=== PATIENT | female | born 1970 | race Caucasian/White ===

== ENCOUNTER 2019-09-28 22:25 | Emergency (ER) | payer OTHER ==
[~2019-09-28] VITALS: Ht 162.6 cm; Wt 68.0 kg
--- OUTSIDE RECORDS SUMMARY | 2019-09-28 22:30 | XMS ---
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 Evie VISIT COUNT (12 MO.) 1 [facility] TOTAL 1 NOTE: Visits indicate total known visits. ED/UCC VISIT TRACKING (12 MO.) 09/28/2019 22:28 [facility] [place] TYPE: Emergency COMPLAINT: - WALKING BACKWORDS AND TWISTED LEFT LEG INPATIENT VISIT TRACKING (12 MO.) No inpatient visits to display in this time frame [id number]
[2019-09-28] MEDS ORDERED: SPIRONOLACTONE25 MG (22:48)
[2019-09-28] MEDS ORDERED: HYDROCHLOROTHIA25 MG (22:50)
[2019-09-28] MEDS ORDERED: NORCO 5-325 TA1 EACH PO (23:24)
[2019-09-28] MEDS ORDERED: CRUTCH1 EACH MISC (23:25)
== END 2019-09-29 00:03 | disposition home or self-care (01) ==
LOC: ED 22:25
DX: S83.92XA Sprain of unspecified site of left knee, initial encounter (principal); X58.XXXA Exposure to other specified factors, initial encounter
CPT/HCPCS: 73560; 99283-25

== ENCOUNTER 2020-02-16 15:17 | Inpatient (IN) | payer OTHER ==
[~2020-02-16] VITALS: Ht 162.6 cm; Wt 88.5 kg
--- OUTSIDE RECORDS SUMMARY | ~2020-02-16 | XMS | Encounter Summary ---
Demographics + + + | Address | [address] | | | [place] [address] | + + + | Home Phone | | + + + | Preferred Language | Unknown | + + + | Marital Status | Single | + + + | Episcopalian Affiliation | Unknown | + + + | Race | White | + + + | Ethnic Group | Not or | + + + Author + + + | Organization | Unknown | + + + | Address | Unknown | + + + | Phone | Unavailable | + + + Support + + + + + | Name | Relationship | Address | Phone | + + + + + | Deyanira Colon | ECON | January | | | | | [place] | | | | | [address] | | + + + + + Care Team Providers + +------+ + | Care Steam Conditioner Operator Name | Role | Phone | + +------+ + PCP | Unavailable | + +------+ + Encounter Details +--------+ + + + + | Date | Type | Department | Care Team | Description | +--------+ + + + + | 06/30/ | Results | | Other, Faculty | | | 1993 | Only | | [phone] | | +--------+ + + + + [...] on file | | + + + + + + + | Job Start Date | Occupation | Industry | + + + + | Not on file | Not on file | Not on file | + + + + + + + + | Travel History | Travel Start | Travel End | + + + + + + | No recent travel history available. | + + documented as of this encounter Plan of Treatment Not on filedocumented as of this encounter Procedures + +--------+ + + + | Procedure Name | Priori | Date/Time | Associated Diagnosis | Comments | | | ty | | | | + +--------+ + + + | US LIVER | Urgent | 06/30/1994 | | Results for this | | | | 1:15 PM | | procedure are in the | | | | PST | | results section. | + +--------+ + + + documented in this encounter Results US LIVER (06/30/1994 1:15 PM PST) + + + + + + | Component | Value | Ref Range | Performed | Pathologist | | | | | At | Signature | + + + + + + | US LIVER | Radiologist 1: CANDACE, | | | | | | SHRAVAN GRIFFINLS, | | | | | | SHALOM TAO | | | | | | | | | | | | | | | | | | [birth year] LIVER | | | | | | ULTRASOUND | | | | | | INTERPRETATION: | | | | | | 06-30-94 at 1315 hours | | | | | | Dictated: 06-30-94 | | | | | | FINDINGS: The patient | | | | | | is in the supine | | | | | | position. With the | | | | | | transducerparallel to | | | | | | the floor, imaging of | | | | | | the right lobe of the | | | | | | liver isperformed with | | | | | | the patient in the | | | | | | end-expiratory phase of | | | | | | respiration.The | | | | | | overlying skin is marked | | | | | | appropriately for | | | | | | biopsy to be performedby | | | | | | the gastroenterology | | | | | | service. Biopsy should | | | | | | be | | | | | | obtainedapproximately 4 | | | | | | cm below the skin | | | | | | surface. IMPRESSION: | | | | | | Ultrasound guidance | | | | | | provided for liver | | | | | | biopsy. END OF | | | | | | IMPRESSION: | | | | + + + + + + + + | Specimen | + + | | + + + + + | Narrative | Performed At | + + + | Ordered by DOMITILA TURNER M.D. | | + + + + +---------+ + + | Performing | Address | City/State/Zipcode | Phone Number | | Organization | | | | + +---------+ + + | [facility] | | | | | RADIOLOGY | | | | + +---------+ + + documented in this encounter Visit Diagnoses Not on filedocumented in this encounter"
--- OUTSIDE RECORDS SUMMARY | ~2020-02-16 | XMS | Encounter Summary ---
Demographics + + + | Address | [address] | | | [place] [address] | + + + | Home Phone | | + + + | Preferred Language | Unknown | + + + | Marital Status | Single | + + + | Muslim Affiliation | Unknown | + + + | Race | White | + + + | Ethnic Group | Not or | + + + Author + + + | Author | [facility] | + + + | Organization | [facility] | + + + | Address | Unknown | + + + | Phone | Unavailable | + + + Support + + + + + | Name | Relationship | Address | Phone | + + + + + | Deyanira Colon | ECON | January | | | | | [place] | | | | | [address] | | + + + + + Care Team Providers + +------+ + | Care Graduate Research Assistant Name | Role | Phone | + +------+ + PCP | Unavailable | + +------+ + Encounter Details +--------+ + + + + | Date | Type | Department | Care Team | Description | +--------+ + + + + | 03/17/ | Results | Registration [id number] | | | | 1994 | Only | [address] | | | | | | [address] Mailcode: [address] | | | | | | [place], [place] | | | | | | [address] | | | | | | [phone] | | | +--------+ + + + [...] | + +--------+ + + + | MISCELLANEOUS | Routin | 03/17/1995 | | Results for this | | CHEMISTRY TESTS | e | 5:31 PM | | procedure are in the | | | | PDT | | results section. | + +--------+ + + + documented in this encounter Results MISCELLANEOUS CHEMISTRY TESTS (03/17/1995 5:31 PM PDT) + + + + + + | Component | Value | Ref Range | Performed | Pathologist | | | | | At | Signature | + + + + + + | MISCELLANEO | LAB ERROR | | | | | US REFERRAL | | | | | | TEST - | | | | | | HEADER | | | | | + + + + + + | MISC REF | BILE ACIDS,SERUM | | | | | TEST NAME | | | | | + + + + + + | MISC REF | TEST REQ FROZEN SPEC; | | | | | TEST RESULT | WAS NOT FROZEN. TEST NOT | | | | | | DONE. | | | | + + + + + + + + | Specimen | + + | | + + + + + + + | Performing | Address | City/State/Zipcode | Phone Number | | Organization | | | | + + + + + | [facility] | [address] | [place] [address] | | | PATHOLOGY | [address] | | | + + + + + documented in this encounter Visit Diagnoses Not on filedocumented in this encounter"
--- OUTSIDE RECORDS SUMMARY | ~2020-02-16 | XMS | Encounter Summary ---
Demographics + + + | Address | [address] | | | [place] [address] | + + + | Home Phone | | + + + | Preferred Language | Unknown | + + + | Marital Status | Single | + + + | Hinduism Affiliation | Unknown | + + + | Race | White | + + + | Ethnic Group | Not or | + + + Author + + + | Author | [facility] | + + + | Organization | [facility] | + + + | Address | Unknown | + + + | Phone | Unavailable | + + + Support + + + + + | Name | Relationship | Address | Phone | + + + + + | Deyanira Colon | ECON | January | | | | | [place] | | | | | [address] | | + + + + + Care Team Providers + +------+ + | Care Target Setter Name | Role | Phone | + +------+ + PCP | Unavailable | + +------+ + Encounter Details +--------+ + + + + | Date | Type | Department | Care Team | Description | +--------+ + + + + | 01/25/ | Results | Registration [id number] | | | | 1994 | Only | [address] | | | | | | [address] Mailcode: [id number] | | | | | | [place], [place] | | | | | | [address] | | | | | | [phone] | | | +--------+ + + + [...] | + +--------+ + + + | CHEMISTRY TESTS 4 | Routin | 01/25/1995 | | Results for this | | | e | 12:32 PM | | procedure are in the | | | | PDT | | results section. | + +--------+ + + + | CBC TESTS 2 | Routin | 01/25/1995 | | Results for this | | | e | 12:32 PM | | procedure are in the | | | | PDT | | results section. | + +--------+ + + + | COAGULATION TESTS 2 | Routin | 01/25/1995 | | Results for this | | | e | 12:32 PM | | procedure are in the | | | | PDT | | results section. | + +--------+ + + + | CHEMISTRY TESTS 2 | Routin | 01/25/1995 | | Results for this | | | e | 12:32 PM | | procedure are in the | | | | PDT | | results section. | + +--------+ + + + documented in this encounter Results CHEMISTRY TESTS 2 (01/25/1995 12:32 PM PDT) + + + + + + | Component | Value | Ref Range | Performed | Pathologist | | | | | At | Signature | + + + + + + | CHOLESTEROL | 312. (H) | mg/dL | | | | (LAB) | | | | | + + + + + + + + | Specimen | + + | | + + + + + + + | Performing | Address | City/State/Zipcode | Phone Number | | Organization | | | | + + + + + | [facility] | [address] | [place] [address] | | | PATHOLOGY | [address] | | | + + + + + CHEMISTRY TESTS 4 (01/25/1995 12:32 PM PDT) + + + + + + | Component | Value | Ref Range | Performed | Pathologist | | | | | At | Signature | + + + + + + | SODIUM, | 138. | mmol/l | | | | PLASMA | | | | | | (LAB) | | | | | + + + + + + | POTASSIUM, | 4.2 | mmol/l | | | | PLASMA | | | | | | (LAB) | | | | | + + + + + + | CHLORIDE, | 106. | mmol/l | | | | PLASMA | | | | | | (LAB) | | | | | + + + + + + | TOTAL CO2, | 24. | mmol/l | | | | PLASMA | | | | | | (LAB) | | | | | + + + + + + | BUN, PLASMA | 5. (L) | mg/dL | | | | (LAB) | | | | | + + + + + + | CREATININE | 0.6 (L) | mg/dL | | | | PLASMA | | | | | | (LAB) | | | | | + + + + + + | GLUCOSE, | 69. | mg/dL | | | | PLASMA | | | | | | (LAB) | | | | | + + + + + + | CALCIUM, | 8.9 | mg/dL | | | | PLASMA | | | | | | (LAB) | | | | | + + + + + + | MAGNESIUM,P | 1.8 | mg/dL | | | | LASMA | | | | | + + + + + + | PHOSPHORUS, | 4.1 | mg/dL | | | | PLASMA | | | | | | (LAB) | | | | | + + + + + + | URIC ACID, | 3.7 | mg/dL | | | | PLASMA | | | | | | (LAB) | | | | | + + + + + + | AST(SGOT) | 42. (H) | U/L | | | + + + + + + | ALT (SGPT) | 82. (H) | U/L | | | + + + + + + | ALK PHOS | 423. (H) | U/L | | | + + + + + + | LD TOTAL, | 180. | U/L | | | | PLASMA | | | | | + + + + + + | BILIRUBIN | 0.1 | mg/dL | | | | DIRECT | | | | | + + + + + + | BILIRUBIN | 0.4 | mg/dL | | | | TOTAL | | | | | + + + + + + | TOTAL | 6.3 | GM/DL | | | | PROTEIN, | | | | | | PLASMA | | | | | | (LAB) | | | | | + + + + + + | ALBUMIN, | 3.2 (L) | GM/DL | | | | PLASMA | | | | | | (LAB) | | | | | + + + + + + + + | Specimen | + + | | + + + + + + + | Performing | Address | City/State/Zipcode | Phone Number | | Organization | | | | + + + + + | [facility] | [address] | [place] [address] | | | PATHOLOGY | [address] | | | + + + + + COAGULATION TESTS 2 (01/25/1995 12:32 PM PDT) + + + + + + | Component | Value | Ref Range | Performed | Pathologist | | | | | At | Signature | + + + + + + | PROTHROMBIN | 20.3 (H) | SECONDS | | | | TIME | | | | | + + + + + + | PROTIME | 1.7 | SECONDS | | | | RATIO | | | | | + + + + + + | PROTHROMBIN | 3.02 | INR | | | | INR | | | | | + + + + + + | NOTE: | | INR | | | | | INTENSITY:INR=2.5-3.5;PT | | | | | | R=1.6-1.9 | | | | + + + + + + + + | Specimen | + + | | + + + + + + + | Performing | Address | City/State/Zipcode | Phone Number | | Organization | | | | + + + + + | [facility] | [address] | [place] [address] | | | PATHOLOGY | [address] | | | + + + + + CBC TESTS 2 (01/25/1995 12:32 PM PDT) + + + + + + | Component | Value | Ref Range | Performed | Pathologist | | | | | At | Signature | + + + + + + | WHITE CELL | 12.1 (H) | K/CU MM | | | | COUNT | | | | | + + + + + + | RED CELL | 3.98 | M/CU MM | | | | COUNT | | | | | + + + + + + | HEMOGLOBIN | 12.4 | GM/DL | | | + + + + + + | HEMATOCRIT | 35.5 (L) | % | | | + + + + + + | MCV | 89.2 | FL | | | + + + + + + | MCH | 31.2 | PG | | | + + + + + + | MCHC | 34.9 (H) | GM/DL | | | + + + + + + | RDW | 12.8 | % | | | + + + + + + | PLATELET | 362. | K/CU MM | | | | COUNT | | | | | + + + + + + | MPV | 8.6 | FL | | | + + + + + + + + | Specimen | + + | | + + + + + + + | Performing | Address | City/State/Zipcode | Phone Number | | Organization | | | | + + + + + | [facility] | [address] | [place] [address] | | | PATHOLOGY | [address] | | | + + + + + documented in this encounter Visit Diagnoses Not on filedocumented in this encounter"
--- OUTSIDE RECORDS SUMMARY | ~2020-02-16 | XMS | Encounter Summary ---
Demographics + + + | Address | [address] | | | [place] [address] | + + + | Home Phone | | + + + | Preferred Language | Unknown | + + + | Marital Status | Single | + + + | Christianity Affiliation | Unknown | + + + [...] [place] | | | | | [address] | | + + + + + Care Team Providers + +------+ + | Care Lamp Assembler Name | Role | Phone | + +------+ + PCP | Unavailable | + +------+ + Encounter Details +--------+ + + + + | Date | Type | Department | Care Team | Description | +--------+ + + + + | 03/22/ | Results | | Other, Faculty | | | 2000 | Only | | [phone] | | +--------+ + + + + [...] | + +--------+ + + + | FERRITIN | Routin | 03/22/2000 | | Results for this | | | e | 12:35 PM | | procedure are in the | | | | PDT | | results section. | + +--------+ + + + | IRON AND TIBC, SERUM | Routin | 03/22/2000 | | Results for this | | | e | 12:35 PM | | procedure are in the | | | | PDT | | results section. | + +--------+ + + + documented in this encounter Results IRON SERUM AND TIBC (03/22/2000 12:35 PM PDT) + +---------+ + + + | Component | Value | Ref Range | Performed | Pathologist | | | | | At | Signature | + +---------+ + + + | IRON SERUM | 78 | 40 - 150 ug/dL | | | + +---------+ + + + | IRON BIND | 418 (H) | 225 - 410 ug/dL | | | | CAP SERUM | | | | | + +---------+ + + + | % | 19 (L) | 20 - 50 % | | | | SATURATION | | | | | | TRANSFERRIN | | | | | | , SERUM | | | | | + +---------+ + + + + + | Specimen | + + | | + + + + + | Narrative | Performed At | + + + | Ordered by AGUSTO CORREA | | + + + + + + + + | Performing | Address | City/State/Zipcode | Phone Number | | Organization | | | | + + + + + | [facility] | [address] | [place] [address] | | | LABORATORY | | | | + + + + + FERRITIN (03/22/2000 12:35 PM PDT) + +-------+ + + + | Component | Value | Ref Range | Performed | Pathologist | | | | | At | Signature | + +-------+ + + + | FERRITIN | 74 | 12 - 250 ng/mL | | | + +-------+ + + + + + | Specimen | + + | | + + + + + | Narrative | Performed At | + + + | Ordered by AGUSTO Puente Ferritin Ref Ranges eff. | | | 08/16/99 | | + + + + + + + + | Performing | Address | City/State/Zipcode | Phone Number | | Organization | | | | + + + + + | [facility] | [address] | [place] [address] | | | LABORATORY | | | | + + + + + documented in this encounter Visit Diagnoses Not on filedocumented in this encounter"
--- OUTSIDE RECORDS SUMMARY | ~2020-02-16 | XMS | Encounter Summary ---
Demographics + + + | Address | [address] | | | [place] [address] | + + + | Home Phone | | + + + | Preferred Language | Unknown | + + + | Marital Status | Single | + + + | Faith Affiliation | Unknown | + + + | Race | White | + + + | Ethnic Group | Not or | + + + Author + + + | Author | [facility] | + + + | Organization | [facility] | + + + | Address | Unknown | + + + | Phone | Unavailable | + + + Support + + + + + | Name | Relationship | Address | Phone | + + + + + | Deyanira Colon | ECON | [address] | | | | | [place] | | | | | [address] | | + + + + + Care Team Providers + +------+ + | Care Swage Tender Name | Role | Phone | + [...] [id number] | | | | | | [place], [place] | | | | | | [address] | | | | | | [phone] | | | +--------+ + + + [...] + + | [facility] | [address] | [place] [address] | | | PATHOLOGY | [address] [...] + + | [facility] | [address] | [place] [address] | | | PATHOLOGY | [address] [...] + + | [facility] | [address] | [place] [address] | | | PATHOLOGY | [address] [...] + + | [facility] | [address] | [place] [address] | | | PATHOLOGY | [address] | | | + + + + + documented in this encounter Visit Diagnoses Not on filedocumented in this encounter"
--- OUTSIDE RECORDS SUMMARY | ~2020-02-16 | XMS | Encounter Summary ---
Demographics + + + | Address | [address] | | | [place] [address] | + + + | Home Phone | | + + + | Preferred Language | Unknown | + + + | Marital Status | Single | + + + | Synagogue Affiliation | Unknown | + + + | Race | White | + + + | Ethnic Group | Not or | + + + Author + + + | Author | [facility] | + + + | Organization | [facility] | + + + | Address | Unknown | + + + | Phone | Unavailable | + + + Support + + + + + | Name | Relationship | Address | Phone | + + + + + | Deyanira Colon | ECON | January | | | | | [place] | | | | | [address] | | + + + + + Care Team Providers + +------+ + | Care Auricular Acupuncturist Name | Role | Phone | + +------+ + PCP | Unavailable | + +------+ + Encounter Details +--------+ + + + + | Date | Type | Department | Care Team | Description | +--------+ + + + + | 06/30/ | Results | Registration [id number] | | | | 1993 | Only | [address] | | | | | | [address] Mailcode: [id number] | | | | | | [place], [place] | | | | | | [address] | | | | | | [phone] | | | +--------+ + + + [...] | CHEMISTRY TESTS 4 | Routin | 06/30/1994 | | Results for this | | | e | 10:27 AM | | procedure are in the | | | | PST | | results section. | + +--------+ + + + | CBC TESTS 2 | Routin | 06/30/1994 | | Results for this | | | e | 10:27 AM | | procedure are in the | | | | PST | | results section. | + +--------+ + + + | COAGULATION TESTS 2 | Routin | 06/30/1994 | | Results for this | | | e | 10:27 AM | | procedure are in the | | | | PST | | results section. | + +--------+ + + + | CHEMISTRY TESTS 2 | Routin | 06/30/1994 | | Results for this | | | e | 10:27 AM | | procedure are in the | | | | PST | | results section. | + +--------+ + + + | IMMUNOLOGY TESTS 1 | Routin | 06/30/1994 | | Results for this | | | e | 10:27 AM | | procedure are in the | | | | PST | | results section. | + +--------+ + + + documented in this encounter Results CHEMISTRY TESTS 2 (06/30/1994 10:27 AM PST) + + + + + + | Component | Value | Ref Range | Performed | Pathologist | | | | | At | Signature | + + + + + + | CHOLESTEROL | 208. | mg/dL | | | | (LAB) | | | | | + + + + + + + + | Specimen | + + | | + + + + + + + | Performing | Address | City/State/Zipcode | Phone Number | | Organization | | | | + + + + + | [facility] | [address] | [place] [address] | | | PATHOLOGY | [address] | | | + + + + + CHEMISTRY TESTS 4 (06/30/1994 10:27 AM PST) + + + + + + [...] + + + + | POTASSIUM, | 4.5 | mmol/l | | | | PLASMA | | | | | | (LAB) | | | | | + + + + + + | CHLORIDE, | 104. | mmol/l | | | | PLASMA | | | | | | (LAB) | | | | | + + + + + + | TOTAL CO2, | 25. | mmol/l | | | | PLASMA | | | | | | (LAB) | | | | | + + + + + + | BUN, PLASMA | 7. | mg/dL | | | | (LAB) | | | | | + + + + + + | CREATININE | 0.9 | mg/dL | | | | PLASMA | | | | | | (LAB) | | | | | + + + + + + | GLUCOSE, | 84. | mg/dL | | | | PLASMA | | | | | | (LAB) | | | | | + + + + + + | CALCIUM, | 9.5 | mg/dL | | | | PLASMA | | | | | | (LAB) | | | | | + + + + + + | MAGNESIUM,P | 1.9 | mg/dL | | | | LASMA | | | | | + + + + + + | PHOSPHORUS, | 3.2 | mg/dL | | | | PLASMA | | | | | | (LAB) | | | | | + + + + + + | URIC ACID, | 5.5 | mg/dL | | | | PLASMA | | | | | | (LAB) | | | | | + + + + + + | AST(SGOT) | 18. | U/L | | | + + + + + + | ALT (SGPT) | 17. | U/L | | | + + + + + + | ALK PHOS | 185. (H) | U/L | | | + + + + + + | LD TOTAL, | 154. | U/L | | | | PLASMA | | | | | + + + + + + | BILIRUBIN | 0.1 | mg/dL | | | | DIRECT | | | | | + + + + + + | BILIRUBIN | 0.6 | mg/dL | | | | TOTAL | | | | | + + + + + + | TOTAL | 7.7 | GM/DL | | | | PROTEIN, | | | | | | PLASMA | | | | | | (LAB) | | | | | + + + + + + | ALBUMIN, | 4.4 | GM/DL | | | | PLASMA | | | | | | (LAB) | | | | | + + + + + + + + | Specimen | + + | | + + + + + + + | Performing | Address | City/State/Zipcode | Phone Number | | Organization | | | | + + + + + | [facility] | [address] | [place] [address] | | | PATHOLOGY | [address] | | | + + + + + COAGULATION TESTS 2 (06/30/1994 10:27 AM PST) + + + + + + | Component | Value | Ref Range | Performed | Pathologist | | | | | At | Signature | + + + + + + | PROTHROMBIN | 12.4 | SECONDS | | | | TIME | | | | | + + + + + + | PROTIME | 1.1 | SECONDS | | | | RATIO | | | | | + + + + + + | PROTHROMBIN | 1.12 | INR | | | | INR | | | | | + + + + + + + + | Specimen | + + | | + + + + + + + | Performing | Address | City/State/Zipcode | Phone Number | | Organization | | | | + + + + + | [facility] | [address] | [place] [address] | | | PATHOLOGY | [address] | | | + + + + + CBC TESTS 2 (06/30/1994 10:27 AM PST) + + + + + + | Component | Value | Ref Range | Performed | Pathologist | | | | | At | Signature | + + + + + + | WHITE CELL | 8.6 | K/CU MM | | | | COUNT | | | | | + + + + + + | RED CELL | 4.55 | M/CU MM | | | | COUNT | | | | | + + + + + + | HEMOGLOBIN | 14. | GM/DL | | | + + + + + + | HEMATOCRIT | 40.8 | % | | | + + + + + + | MCV | 89.4 | [place] | | | + + + + + + | MCH | 30.8 | PG | | | + + + + + + | MCHC | 34.4 (H) | GM/DL | | | + + + + + + | RDW | 12.5 | % | | | + + + + + + | PLATELET | 339. | K/CU MM | | | | COUNT | | | | | + + + + + + | MPV | 8.1 | [place] | | | + + + + + + + + | Specimen | + + | | + + + + + + + | Performing | Address | City/State/Zipcode | Phone Number | | Organization | | | | + + + + + | [facility] | [address] | [place] [address] | | | PATHOLOGY | [address] | | | + + + + + IMMUNOLOGY TESTS 1 (06/30/1994 10:27 AM PST) + + + + + + | Component | Value | Ref Range | Performed | Pathologist | | | | | At | Signature | + + + + + + | ANTI-MITOCH | NEGATIVE | | | | | ONDRIAL, | | | | | | SERUM | | | | | + + + + + + + + | Specimen | + + | | + + + + + + + | Performing | Address | City/State/Zipcode | Phone Number | | Organization | | | | + + + + + | [facility] | [address] | [place] [address] | | | PATHOLOGY | [address] | | | + + + + + documented in this encounter Visit Diagnoses Not on filedocumented in this encounter"
--- OUTSIDE RECORDS SUMMARY | ~2020-02-16 | XMS | Encounter Summary ---
Demographics + + + | Address | [address] | | | [place] [address] | + + + | Home Phone | | + + + | Preferred Language | Unknown | + + + | Marital Status | Single | + + + | Mu-Ism Affiliation | Unknown | + + + [...] [place] | | | | | [address] | | + + + + + Care Team Providers + +------+ + | Care Inventory Clerk Name | Role | Phone | + +------+ + PCP | Unavailable | + +------+ + Encounter Details +--------+ + + + + | Date | Type | Department | Care Team | Description | +--------+ + + + + | 03/22/ | Results | | Other, Faculty | | | 2000 | Only | | [phone] | | +--------+ + + + + [...] | + + + + + | [facility] | [address] | [place] [address] | | | LABORATORY | | | [...] | + + + + + | [facility] | [address] | [place] [address] | | | LABORATORY | | | | + + + + + documented in this encounter Visit Diagnoses Not on filedocumented in this encounter"
--- OUTSIDE RECORDS SUMMARY | ~2020-02-16 | XMS | Encounter Summary ---
Demographics + + + | Address | [address] | | | [place] [address] | + + + | Home Phone | | + + + | Preferred Language | Unknown | + + + | Marital Status | | + + + | Church Affiliation | Unknown | + + + | Race | Unknown | + + + | Ethnic Group | Unknown | + + + Author + + + | Author | [facility] | | | and [place] | + + + | Organization | [facility] | | | and [place] | [...] Team Providers + +------+ + | Care Extrusion Technician Name | Role | Phone | + +------+ + PCP | Unavailable | + +------+ + Encounter Details +--------+ + + + + | Date | Type | Department | Care Team | Description | +--------+ + + + + | 04/27/ | Hospital | [facility] | Conversion | Unspecified | | 1994 - | Encounter | [facility] | Transaction, | hypertension, with | | | | [address] | Provider Unknown | delivery | | 05/01/ | | [address] | | | | 1994 | | [place], [place] | (Fax) | | | | | [address] | | | | | | [phone] | | | +--------+ + + + [...] filedocumented as of this encounter Visit Diagnoses + + | Diagnosis | + + | Unspecified hypertension, with delivery | + + documented in this encounter"
--- OUTSIDE RECORDS SUMMARY | ~2020-02-16 | XMS | Encounter Summary ---
Demographics + + + | Address | [address] | | | [place] [address] | + + + | Home Phone | | + + + | Preferred Language | Unknown | + + + | Marital Status | | + + + | Mu-Ism Affiliation | Unknown | + + + | Race | Unknown | + + + | Ethnic Group | Unknown | + + + Author + + + | Author | [facility] | | | and [place] | + + + | Organization | [facility] | | | and [place] [...] Team Providers + +------+ + | Care Sawmill Production Worker Name | Role | Phone | + +------+ + PCP | Unavailable | + +------+ + Encounter Details +--------+ + + + + | Date | Type | Department | Care Team | Description | +--------+ + + + + | 08/29/ | Hospital | [facility] | Rodrigo Flor | М[facility] | | 2003 | Encounter | [facility] | [address] | NOS- | | | | [address] | [address] | | | | | [address] | [place] [address] | | | | | [place], [place] | [phone] | | | | | [address] | | | | | | [phone] | | | +--------+ + + + [...] Diagnosis | + + | Unspecified hypertension, condition or complication | + + documented in this encounter"
--- OUTSIDE RECORDS SUMMARY | ~2020-02-16 | XMS | Encounter Summary ---
Demographics + + + | Address | [address] | | | [place] [address] | + + + | Home Phone | | + + + | Preferred Language | Unknown | + + + | Marital Status | Single | + + + | Yazdanism Affiliation | Unknown | + + + [...] [place] | | | | | [address] | | + + + + + Care Team Providers + +------+ + | Care Political Worker Name | Role | Phone | + +------+ + PCP | Unavailable | + +------+ + Encounter Details +--------+ + + + + | Date | Type | Department | Care Team | Description | +--------+ + + + + | 06/30/ | Results | | Other, Faculty | | | 1993 | Only | | [phone] | | +--------+ + + + + [...] | | + +---------+ + + | [facility] DEPARTMENT OF | | | | | RADIOLOGY | | | | + +---------+ + + documented in this encounter Visit Diagnoses Not on filedocumented in this encounter"
--- OUTSIDE RECORDS SUMMARY | ~2020-02-16 | XMS | Clinical Summary ---
Demographics + + + | Address | [address] | | | [place] [address] | + + + | Home Phone | | + + + | Preferred Language | Unknown | + + + | Marital Status | | + + + | Hindu Affiliation | Unknown | + + + | Race | Unknown | + + + | Ethnic Group | Unknown | + + + Author + + + | Author | [facility] | | | and [place] | + + + | Organization | [facility] | | | and [place] [...] Team Providers + +------+ + | Care Classification And Treatment Director Name | Role | Phone | + +------+ + PCP | Unavailable | + +------+ + Allergies Not on File Medications Not on [...] on file | | + + + Last Filed Vital Signs Not on file Plan of Treatment + + +-------+ + | Health Maintenance | Due Date | Last | Comments | | | | Done | | + + +-------+ + | Vaccine: | | | | | Dtap/Tdap/Td (1 - | 2 | | | | Tdap) | | | | + + +-------+ + | Cervical Cancer | | | | | Screening (Pap) | 3 | | | + + +-------+ + | Breast Cancer | | | | | Screening | 8 | | | + + +-------+ + | Vaccine: Influenza | | | | | (#1) | 0 | | | + + +-------+ + Results Not on filefrom Last 3 Months"
--- OUTSIDE RECORDS SUMMARY | ~2020-02-16 | XMS | Encounter Summary ---
Demographics + + + | Address | [address] | | | [place] [address] | + + + | Home Phone | | + + + | Preferred Language | Unknown | + + + | Marital Status | Single | + + + | Sikhism Affiliation | Unknown | + + + | Race | White | + + + | Ethnic Group | Not or | + + + Author + + + | Author | [facility] | + + + | Organization | [facility] | + + + | Address | Unknown | + + + | Phone | Unavailable | + + + Support + + + + + | Name | Relationship | Address | Phone | + + + + + | Deyanira Colon | ECON | January | | | | | [place] | | | | | [address] | | + + + + + Care Team Providers + +------+ + | Care Mixer Driver Name | Role | Phone | + +------+ + PCP | Unavailable | + +------+ + Encounter Details +--------+ + + + + | Date | Type | Department | Care Team | Description | +--------+ + + + + | 03/22/ | Office | [facility] | Note, Outpatient | Progress Note | | 2000 | Visit-Trans | MEDICINE | Clinic | | | | cribed | | | | +--------+ + + + [...] + + documented as of this encounter Progress Notes Eugenio, Foil Spinner In - 06/27/2006 3:08 AM PSTCLINIC DATE: 03/22/2000 HEPATOLOGY CLINIC ADDENDUM I reviewed the clinical circumstances and interim history of Stacy Hernandeziscoll with the patient and Robromain Segundo. She suffered pruritus during an episode of in 1994, at which time her alkaline phosphatase was elevated. She was treated transiently at that time with diphenhydramine, Questran, and Actigall with resolution of symptoms. A liver biopsy was reportedly performed which demonstrated fatty liver. She developed recurrent pruritus, approximately two months ago, which was treated with diphenhydramine and one episode of phlebotomy with resolution. She reports that her serum iron was moderately increased, but that her liver enzymes were normal. Repeat testing on her visit here demonstrates modest alkaline phosphatase elevation at 203, with a normal of 105, with a decreased iron saturation of 19%, and a ferritin in the normal range of 74. Of note, her antimitochondrial antibody was negative on her initial evaluation in 1994. It is my impression that she likely has modest alkaline phosphatase elevation due to her fatty liver. However, I think it would be prudent in view of persistent alkaline phosphatase elevation and intermittent pruritus, to recheck antimitochondrial antibody which could be performed by her primary care physician in [facility], Dr. Lowery. Henri Marshall M.D. [place] / [place] [id number] / [id number] / [id number] / [id number] signed by Eugenio, Foil Spinner In at 06/27/2006 3:08 AM PSTInterf tramaine, Foil Spinner In - 06/27/2006 3:08 AM PSTCLINIC DATE: 03/22/2000 HISTORY OF PRESENT ILLNESS: The patient complains of intense itching for two to three months. She has previously had episodes of the same, the last occurring during her in 1994. Attempts to contain the itching with Actigall and Questran were unsuccessful. Diphenhydramine injections daily also did not control her symptoms. She did obtain relief approximately one month ago when her primary care provider ordered a one time phlebotomy of 1 unit. This has improved her symptoms at this time. She does not drink alcoholic beverages more than rarely. She does not have a history of IV drug use, blood transfusions, or tattoos. She does not use intranasal cocaine. She denies jaundice, nausea, or vomiting. She has occasional abdominal pain, primarily lower left quadrant. She has not had intestinal bleeding, difficulty with memory, or accumulation of fluid in her feet, ankles, or abdomen. She has previously been evaluated for autoimmune disorders. She states that her sister has had similar occurrences particularly during . OBJECTIVE: VITAL SIGNS: Weight 172 pounds, decreased by 20 pounds from 1998, pulse 92, and blood pressure 104/82. GENERAL APPEARANCE: A well-developed, well-nourished, adult female in no acute distress. HEENT: Pupils are equal, round, and reactive to light and accommodation bilaterally. Sclerae anicteric. Oropharynx moist without lesions. NECK: Supple without lymphadenopathy. RESPIRATORY: No tenderness to palpation on chest wall. No signs of respiratory distress. Lungs are clear to auscultation, anterior, posterior, and lateral bilaterally. CARDIOVASCULAR: Regular rate and rhythm without murmur. ABDOMEN: Mildly obese. Nondistended and nontender with the exception of some left lower quadrant pain. No increased abdominal vasculature. No hepatosplenomegaly noted. NEUROLOGIC: Alert and oriented without asterixis. EXTREMITIES: No peripheral edema, clubbing, or cyanosis noted. SKIN: Without stigmata of chronic liver disease, and otherwise, warm and dry to touch. LABORATORY DATA: Previous laboratory evaluation not available. However, the patient did have a liver biopsy in 1994 with fat accumulation. DIAGNOSES 1. Isolated elevation of alkaline phosphatase. 1.1. Negative AMA, UCHE, and viral hepatitis serology in 1994. 1.2. History of pruritus, now resolved. 2. No history of drug or alcohol abuse. 3. History of depression, currently being treated. 4. Status post section in 1994. IMPRESSION: The patient is a pleasant 29-year-old female with a history of elevated alkaline phosphatase levels during which gave similar symptoms to her itching with recurrence of itching for a period of two to three months. That resolved with a one episode of phlebotomy. Laboratory studies were not available at this visit. She has previously been AMA and UCHE negative, as well as negative for viral hepatitis. At this point, it is difficult because her symptoms have resolved and laboratory data is not available. We will draw a liver function panel today and contact the patient by telephone should further followup be warranted. Previous episodes, although elevated isolated alkaline phosphatase levels have been noted, were thought to be somewhat functional in nature. This may again be the case with increased stress secondary to her recent separation. However, a workup is indicated. This patient was seen and examined with Dr. Henri Marshall. PLAN 1. Liver function panel, as well as iron studies. 2. Telephone followup as indicated. Xiang Lauren. / [id number] / [id number] / [id number] / [id number] signed by Interface, Foil Spinner In at 06/27/2006 3:08 AM PSTdocume nted in this encounter Plan of Treatment Not on filedocumented as of this encounter Visit Diagnoses Not on filedocumented in this encounter"
--- OUTSIDE RECORDS SUMMARY | ~2020-02-16 | XMS | Encounter Summary ---
Demographics + + + | Address | [address] | | | [place] [address] | + + + | Home Phone | | + + + | Preferred Language | Unknown | + + + | Marital Status | Single | + + + | Bahai Affiliation | Unknown | + + + | Race | White | + + + | Ethnic Group | Not or | + + + Author + + + | Author | [facility] | + + + | Organization | [facility] | + + + | Address | Unknown | + + + | Phone | Unavailable | + + + Support + + + + + | Name | Relationship | Address | Phone | + + + + + | Deyanira Colon | ECON | January | | | | | [place] | | | | | [address] | | + + + + + Care Team Providers + +------+ + | Care Senior Microstrategy Developer Name | Role | Phone | + [...] [id number] | | | | | | [place], [place] | | | | | | [address] | | | | | | [phone] | | | +--------+ + + + [...] | + + + + + | [facility] | [address] | [place] [address] | | | PATHOLOGY | [address] | | | + + + + + documented in this encounter Visit Diagnoses Not on filedocumented in this encounter"
--- OUTSIDE RECORDS SUMMARY | ~2020-02-16 | XMS | Clinical Summary ---
Demographics + + + | Address | [address] | | | [place] [address] | + + + | Home Phone | | + + + | Preferred Language | Unknown | + + + | Marital Status | | + + + | Faith Affiliation | Unknown | + + + | Race | Unknown | + + + | Ethnic Group | Unknown | + + + Author + + + | Author | [facility] | | | and [place] | + + + | Organization | [facility] | | | and [place] [...] Team Providers + +------+ + | Care Clinical Biostatistics Director Name | Role | Phone | [...]
--- OUTSIDE RECORDS SUMMARY | ~2020-02-16 | XMS | Encounter Summary ---
Demographics + + + | Address | [address] | | | [place] [address] | + + + | Home Phone | | + + + | Preferred Language | Unknown | + + + | Marital Status | | + + + | Muslim Affiliation | Unknown | + + + | Race | Unknown | + + + | Ethnic Group | Unknown | + + + Author + + + | Author | [facility] | | | and [place] | + + + | Organization | [facility] | | | and [place] [...] Team Providers + +------+ + | Care Assembler And Tester Electronics Name | Role | Phone | + +------+ + PCP | Unavailable | + +------+ + Encounter Details +--------+ + + + + | Date | Type | Department | Care Team | Description | +--------+ + + + + | 08/22/ | Hospital | [facility] | Rodrigo Flor | | | 2003 - | Encounter | [facility] | MD Carlie Gupta | | | | | [address] | [address] | | | 08/24/ | | [address] | [place] [address] | | | 2003 | | [place], [place] | [phone] | | | | | [address] | | | | | | [phone] | | | +--------+ + + + [...]
--- OUTSIDE RECORDS SUMMARY | ~2020-02-16 | XMS | Encounter Summary ---
Demographics + + + | Address | [address] | | | [place] [address] | + + + | Home Phone | | + + + | Preferred Language | Unknown | + + + | Marital Status | Single | + + + | Adventist Affiliation | Unknown | + + + | Race | White | + + + | Ethnic Group | Not or | + + + Author + + + | Author | [facility] | + + + | Organization | [facility] | + + + | Address | Unknown | + + + | Phone | Unavailable | + + + Support + + + + + | Name | Relationship | Address | Phone | + + + + + | Deyanira Colon | ECON | January | | | | | [place] | | | | | [address] | | + + + + + Care Team Providers + +------+ + | Care Softwood Faller Name | Role | Phone | + +------+ + PCP | Unavailable | + +------+ + Encounter Details +--------+ + + + + | Date | Type | Department | Care Team | Description | +--------+ + + + + | 06/30/ | Results | LAB CORE [address] | Other, Faculty | | | 1993 | Only | [address] | [phone] | | | | | [place], [place] | | | | | | [address] | | | | | | [phone] | | | +--------+ + + + [...] | + + + + + | [facility] | [address] | [place] [address] | | | PATHOLOGY | [address] | | | + + + + + documented in this encounter Visit Diagnoses Not on filedocumented in this encounter"
--- OUTSIDE RECORDS SUMMARY | ~2020-02-16 | XMS | Encounter Summary ---
Demographics + + + | Address | [address] | | | [place] [address] | + + + | Home Phone | | + + + | Preferred Language | Unknown | + + + | Marital Status | Single | + + + | Taoist Affiliation | Unknown | + + + | Race | White | + + + | Ethnic Group | Not or | + + + Author + + + | Author | [facility] | + + + | Organization | [facility] | + + + | Address | Unknown | + + + | Phone | Unavailable | + + + Support + + + + + | Name | Relationship | Address | Phone | + + + + + | Deyanira Colon | ECON | January | | | | | [place] | | | | | [address] | | + + + + + Care Team Providers + +------+ + | Care Budget And Policy Analyst Name | Role | Phone | + [...] as of this encounter Progress Notes Eugenio, Nuclear Power Plant Engineer In - 06/27/2006 3:08 AM PSTCLINIC DATE: [...] performed by her primary care physician in [facility], Dr. Lowery. Henri Marshall M.D. [place] / CHARLIE [id number] / [id number] / [id number] / [id number] signed by Eugenio, Nuclear Power Plant Engineer In at 06/27/2006 3:08 AM PSTInterf tramaine, Nuclear Power Plant Engineer In - 06/27/2006 3:08 AM PSTCLINIC DATE: [...] Telephone followup as indicated. Xiang Lauren. / [id number] / [id number] / [id number] / [id number] signed by Interface, Nuclear Power Plant Engineer In at 06/27/2006 3:08 AM PSTdocume nted in this encounter Plan of Treatment Not on filedocumented as of this encounter Visit Diagnoses Not on filedocumented in this encounter"
--- OUTSIDE RECORDS SUMMARY | ~2020-02-16 | XMS | Encounter Summary ---
Demographics + + + | Address | [address] | | | [place] [address] | + + + | Home Phone | | + + + | Preferred Language | Unknown | + + + | Marital Status | Single | + + + | Shinto Affiliation | Unknown | + + + | Race | White | + + + | Ethnic Group | Not or | + + + Author + + + | Author | [facility] | + + + | Organization | [facility] | + + + | Address | Unknown | + + + | Phone | Unavailable | + + + Support + + + + + | Name | Relationship | Address | Phone | + + + + + | Deyanira Colon | ECON | January | | | | | [place] | | | | | [address] | | + + + + + Care Team Providers + +------+ + | Care Analysis Internship Name | Role | Phone | + [...] [id number] | | | | | | [place], [place] | | | | | | [address] | | | | | | [phone] | | | +--------+ + + + [...] | + + + + + | [facility] | [address] | [place] [address] | | | PATHOLOGY | [address] [...] | + + + + + | [facility] | [address] | [place] [address] | | | PATHOLOGY | [address] [...] | + + + + + | [facility] | [address] | [place] [address] | | | PATHOLOGY | [address] [...] | + + + + + | [facility] | [address] | [place] [address] | | | PATHOLOGY | [address] [...] | + + + + + | [facility] | [address] | [place] [address] | | | PATHOLOGY | [address] | | | + + + + + documented in this encounter Visit Diagnoses Not on filedocumented in this encounter"
--- OUTSIDE RECORDS SUMMARY | ~2020-02-16 | XMS | Encounter Summary ---
Demographics + + + | Address | [address] | | | [place] [address] | + + + | Home Phone | | + + + | Preferred Language | Unknown | + + + | Marital Status | | + + + | Church Affiliation | Unknown | + + + | Race | Unknown | + + + | Ethnic Group | Unknown | + + + Author + + + | Author | [facility] | | | and [place] | + + + | Organization | [facility] | | | and [place] [...] Team Providers + +------+ + | Care Cigarette Catcher Name | Role | Phone | + +------+ + PCP | Unavailable | + +------+ + Encounter Details +--------+ + + + + | Date | Type | Department | Care Team | Description | +--------+ + + + + | 08/29/ | Hospital | [facility] | Rodrigo Flor | [facility] | | 2003 | Encounter | [facility] | [address] | NOS- | | | | [address] | [address] | | | | | [address] | [place] [address] | | | | | [place], [place] | [phone] | | | | | [address] | | | | | | [phone] | | | +--------+ + + + [...]
--- OUTSIDE RECORDS SUMMARY | ~2020-02-16 | XMS | Encounter Summary ---
Demographics + + + | Address | [address] | | | [place] [address] | + + + | Home Phone | | + + + | Preferred Language | Unknown | + + + | Marital Status | Single | + + + | Temple Affiliation | Unknown | + + + [...] [place] | | | | | [address] | | + + + + + Care Team Providers + +------+ + | Care Coal Gasification Technician Name | Role | Phone | + +------+ + PCP | Unavailable | + +------+ + Encounter Details +--------+ + + + + | Date | Type | Department | Care Team | Description | +--------+ + + + + | 06/30/ | Results | | Other, Faculty | | | 1993 | Only | | [phone] | | +--------+ + + + + [...] | | + +---------+ + + | [facility] DEPARTMENT OF | | | | | RADIOLOGY | | | | + +---------+ + + documented in this encounter Visit Diagnoses Not on filedocumented in this encounter"
--- OUTSIDE RECORDS SUMMARY | ~2020-02-16 | XMS | Encounter Summary ---
Demographics + + + | Address | [address] | | | [place] [address] | + + + | Home Phone | | + + + | Preferred Language | Unknown | + + + | Marital Status | Single | + + + | Mosque Affiliation | Unknown | + + + [...] [place] | | | | | [address] | | + + + + + Care Team Providers + +------+ + | Care Wardrobe Mistress Name | Role | Phone | + +------+ + PCP | Unavailable | + +------+ + Encounter Details +--------+ + + + + | Date | Type | Department | Care Team | Description | +--------+ + + + + | 06/30/ | Results | LAB CORE [address] | Other, Faculty | | | 1993 | Only | [address] | [phone] | | | | | [place], [place] | | | | | | [address] | | | | | | [phone] | | | +--------+ + + + [...] [facility] | [address] | [place] [address] | | | PATHOLOGY | [address] | | | + + + + + documented in this encounter Visit Diagnoses Not on filedocumented in this encounter"
--- OUTSIDE RECORDS SUMMARY | ~2020-02-16 | XMS | Encounter Summary ---
Demographics + + + | Address | [address] | | | [place] [address] | + + + | Home Phone | | + + + | Preferred Language | Unknown | + + + | Marital Status | Single | + + + | Sabianist Affiliation | Unknown | + + + [...] [place] | | | | | [address] | | + + + + + Care Team Providers + +------+ + | Care Farm Supervisor Name | Role | Phone | + +------+ + PCP | Unavailable | + +------+ + Encounter Details +--------+ + + + + | Date | Type | Department | Care Team | Description | +--------+ + + + + | 03/22/ | Results | | Other, Faculty | | | 2000 | Only | | [phone] | | +--------+ + + + + [...] | + + + + + | [facility] | [address] | [place] [address] | | | LABORATORY | | | [...] | + + + + + | [facility] | [address] | [place] [address] | | | LABORATORY | | | | + + + + + documented in this encounter Visit Diagnoses Not on filedocumented in this encounter"
--- OUTSIDE RECORDS SUMMARY | ~2020-02-16 | XMS | Clinical Summary ---
Demographics + + + | Address | [address] | | | [place] [address] | + + + | Home Phone [...] [place] | | | | | [address] | | + + + + + Care Team Providers + +------+ + | Care Wheel Inspector Name | Role | Phone | + +------+ + PCP | Unavailable | + +------+ + Source Comments SPARKLE is fully live on both [facility] Ambulatory and [facility] InPatient.[facility] Allergies Not on File Medications Not on [...]
--- OUTSIDE RECORDS SUMMARY | ~2020-02-16 | XMS | Encounter Summary ---
Demographics + + + | Address | [address] | | | [place] [address] | + + + | Home Phone | | + + + | Preferred Language | Unknown | + + + | Marital Status | | + + + | Confucianism Affiliation | Unknown | + + + | Race | Unknown | + + + | Ethnic Group | Unknown | + + + Author + + + | Author | [facility] | | | and Viniana | + + + | Organization | [facility] | | | and [...] Team Providers + +------+ + | Care Lawn Specialist Name | Role | Phone | + +------+ + PCP | Unavailable | + +------+ + Encounter Details +--------+ + + + + | Date | Type | Department | Care Team | Description | +--------+ + + + + | 04/27/ | Hospital | [facility] | Conversion | Unspecified | | 1994 - | Encounter | [facility] | Transaction, | hypertension, with | | | | AND DELIVERY [address] | Provider Unknown | delivery | | 05/01/ | | MARY LONGO | | | | 1992 | | [place], [place] | (Fax) | | | | | [address] | | | | | | [phone] | | | +--------+ + + + [...]
--- OUTSIDE RECORDS SUMMARY | ~2020-02-16 | XMS | Clinical Summary ---
Demographics + + + | Address | [address] | | | [place] [address] | + + + | Home Phone | | + + + | Preferred Language | Unknown | + + + | Marital Status | Single | + + + | Gnosticist Affiliation | Unknown | + + + [...] [place] | | | | | [address] | | + + + + + Care Team Providers + +------+ + | Care Grave Cleaner Name | Role | Phone | + +------+ + PCP | Unavailable | + +------+ + Source Comments SPARKLE is fully live on both [facility] and [facility] InPatient.[facility] Allergies Not on File Medications Not on [...]
--- OUTSIDE RECORDS SUMMARY | ~2020-02-16 | XMS | Encounter Summary ---
Demographics + + + | Address | [address] | | | [place] [address] | + + + | Home Phone | | + + + | Preferred Language | Unknown | + + + | Marital Status | Single | + + + | Yarsani Affiliation | Unknown | + + + | Race | White | + + + | Ethnic Group | Not or | + + + Author + + + | Author | [facility] | + + + | Organization | [facility] | + + + | Address | Unknown | + + + | Phone | Unavailable | + + + Support + + + + + | Name | Relationship | Address | Phone | + + + + + | Deyanira Colon | ECON | January | | | | | [place] | | | | | [address] | | + + + + + Care Team Providers + +------+ + | Care Manager Research Development Name | Role | Phone | + [...] [id number] | | | | | | [place], [place] | | | | | | [address] | | | | | | [phone] | | | +--------+ + + + [...] | + + + + + | [facility] | [address] | [place] [address] | | | PATHOLOGY | [address] [...] | + + + + + | [facility] | [address] | [place] [address] | | | PATHOLOGY | [address] [...] | + + + + + | [facility] | [address] | [place] [address] | | | PATHOLOGY | [address] [...] | + + + + + | [facility] | [address] | [place] [address] | | | PATHOLOGY | [address] [...] | + + + + + | [facility] | [address] | [place] [address] | | | PATHOLOGY | [address] | | | + + + + + documented in this encounter Visit Diagnoses Not on filedocumented in this encounter"
--- OUTSIDE RECORDS SUMMARY | ~2020-02-16 | XMS | Encounter Summary ---
Demographics + + + | Address | [address] | | | [place] [address] | + + + | Home Phone | | + + + | Preferred Language | Unknown | + + + | Marital Status | Single | + + + | Sikh Affiliation | Unknown | + + + | Race | White | + + + | Ethnic Group | Not or | + + + Author + + + | Author | [facility] | + + + | Organization | [facility] | + + + | Address | Unknown | + + + | Phone | Unavailable | + + + Support + + + + + | Name | Relationship | Address | Phone | + + + + + | Deyanira Colon | ECON | January | | | | | [place] | | | | | [address] | | + + + + + Care Team Providers + +------+ + | Care Paint Stock Clerk Name | Role | Phone | [...] as of this encounter Progress Notes Eugenio, Director Motion Picture In - 06/27/2006 3:08 AM PSTCLINIC DATE: [...] performed by her primary care physician in [facility], Dr. Lowery. Henri Marshall M.D. CHINO / CHARLIE [id number] / [id number] / [id number] / [id number] signed by Eugenio, Director Motion Picture In at 06/27/2006 3:08 AM PSTInterf tramaine, Director Motion Picture In - 06/27/2006 3:08 AM PSTCLINIC DATE: [...] Telephone followup as indicated. Xiang Lauren. / [id number] / [id number] / [id number] / [id number] signed by Interface, Director Motion Picture In at 06/27/2006 3:08 AM PSTdocume nted in this encounter Plan of Treatment Not on filedocumented as of this encounter Visit Diagnoses Not on filedocumented in this encounter"
--- OUTSIDE RECORDS SUMMARY | ~2020-02-16 | XMS | Encounter Summary ---
Demographics + + + | Address | [address] | | | [place] [address] | + + + | Home Phone | | + + + | Preferred Language | Unknown | + + + | Marital Status | | + + + | Orthodoxy Affiliation | Unknown | + + + | Race | Unknown | + + + | Ethnic Group | Unknown | + + + Author + + + | Author | [facility] | | | and Viniana | + + + | Organization | [facility] | | | and [...] Team Providers + +------+ + | Care General Maintenance Engineer Name | Role | Phone | + +------+ + PCP | Unavailable | + +------+ + Encounter Details +--------+ + + + + | Date | Type | Department | Care Team | Description | +--------+ + + + + | 08/22/ | Hospital | [facility] | [place]o [place] | | | 2003 - | Encounter | [facility] | MD Carlie Gupta | | | | | [address] DEL[address] | [address] | | | 08/24/ | | MARY [address] | [place] [address] | | | 2003 | | [place], [place] | [phone] | | | | | [address] | | | | | | [phone] | | | +--------+ + + + [...]
--- OUTSIDE RECORDS SUMMARY | ~2020-02-16 | XMS | Encounter Summary ---
Demographics + + + | Address | [address] | | | [place] [address] | + + + | Home Phone | | + + + | Preferred Language | Unknown | + + + | Marital Status | | + + + | Yazidism Affiliation | Unknown | + + + | Race | Unknown | + + + | Ethnic Group | Unknown | + + + Author + + + | Author | [facility] | | | and Viniana | + + + | Organization | [facility] | | | and [...] Team Providers + +------+ + | Care Freezer Laboratory Technician Name | Role | Phone | [...] Encounter | [facility] [address] | MD C[address] | FOLLOW-UP | | | | [place] | [address] | | | | | [place], [place] | [place] [address] | | | | | [address] | [phone] | | | | | [phone] | | | +--------+ + + + [...]
--- OUTSIDE RECORDS SUMMARY | ~2020-02-16 | XMS | Encounter Summary ---
Demographics + + + | Address | [address] | | | [place] [address] | + + + | Home Phone | | + + + | Preferred Language | Unknown | + + + | Marital Status | Single | + + + | Samaritan Affiliation | Unknown | + + + [...] [place] | | | | | [address] | | + + + + + Care Team Providers + +------+ + | Care Glass Belt Sander Name | Role | Phone | + [...] [id number] | | | | | | [place], [place] | | | | | | [address] | | | | | | [phone] | | | +--------+ + + + [...] + + + + + | [facility] | [address] | [place] [address] | | | PATHOLOGY | [address] | | | + + + + + documented in this encounter Visit Diagnoses Not on filedocumented in this encounter"
--- OUTSIDE RECORDS SUMMARY | ~2020-02-16 | XMS | Clinical Summary ---
Demographics + + + | Address | [address] | | | [place] [address] | + + + | Home Phone | | + + + | Preferred Language | Unknown | + + + | Marital Status | Single | + + + | Scientology Affiliation | Unknown | + + + [...] [place] | | | | | [address] | | + + + + + Care Team Providers + +------+ + | Care Propeller Engineer Name | Role | Phone | + +------+ + PCP | Unavailable | + +------+ + Source Comments SPARKLE is fully live on both [facility] Ambulatory and [facility] InPatient.[facility] Allergies Not on [...]
--- OUTSIDE RECORDS SUMMARY | ~2020-02-16 | XMS | Encounter Summary ---
Demographics + + + | Address | [address] | | | [place] [address] | + + + | Home Phone [...] + + | Author | [facility] | + + + | Organization | [facility] | + + + | Address | Unknown | + + + | Phone | Unavailable | + + + Support + + + + + | Name | Relationship | Address | Phone | + + + + + | Deyanira Colon | ECON | January | | | | | [place] | | | | | [address] | | + + + + + Care Team Providers + +------+ + | Care Senior Digital Designer Name | Role | Phone | + +------+ + PCP | Unavailable | + +------+ + Encounter Details +--------+ + + + + | Date | Type | Department | Care Team | Description | +--------+ + + + + | 06/30/ | Results | LAB [facility]ORE [address] | Other, Faculty | | | 1993 | Only | [address] | [phone] | | | | | [place], [place] | | | | | | [address] | | | | | | [phone] | | | +--------+ + + + [...] | + + + + + | [facility] | [address] | [place] [address] | | | PATHOLOGY | [address] | | | + + + + + documented in this encounter Visit Diagnoses Not on filedocumented in this encounter"
--- OUTSIDE RECORDS SUMMARY | ~2020-02-16 | XMS | Encounter Summary ---
Demographics + + + | Address | [address] | | | [place] [address] | + + + | Home Phone | | + + + | Preferred Language | Unknown | + + + | Marital Status | Single | + + + | Hoahaoism Affiliation | Unknown | + + + [...] [place] | | | | | [address] | | + + + + + Care Team Providers + +------+ + | Care Registry Nurse Name | Role | Phone | + [...] [id number] | | | | | | [place], [place] | | | | | | [address] | | | | | | [phone] | | | +--------+ + + + [...] | + + + + + | [facility] | [address] | [place] [address] | | | PATHOLOGY | [address] [...] | + + + + + | [facility] | [address] | [place] [address] | | | PATHOLOGY | [address] [...] | + + + + + | [facility] | [address] | [place] [address] | | | PATHOLOGY | [address] [...] | + + + + + | [facility] | [address] | [place] [address] | | | PATHOLOGY | [address] | | | + + + + + documented in this encounter Visit Diagnoses Not on filedocumented in this encounter"
--- OUTSIDE RECORDS SUMMARY | ~2020-02-16 | XMS | Encounter Summary ---
Demographics + + + | Address | [address] | | | [place] [address] | + + + | Home Phone | | + + + | Preferred Language | Unknown | + + + | Marital Status | | + + + | Rastafarian Affiliation | Unknown | + + + | Race | Unknown | + + + | Ethnic Group | Unknown | + + + Author + + + | Author | [facility] | | | and Viniana | + + + | Organization | [facility] | | | and [...] Providers + +------+ + | Care Clinical Nurse Leader Name | Role | Phone | + [...] [address] | | | | | [place], [place] | [place] [address] | | | | | [address] | [phone] | | | | | [phone] | | | +--------+ + + + [...]
[~2020-02-16 15:17] MED LIST: CRUTCH1 EACH MISC; HYDROCHLOROTHIA25 MG; NORCO 5-325 TA1 EACH PO; SPIRONOLACTONE25 MG
--- OUTSIDE RECORDS SUMMARY | 2020-02-16 15:20 | XMS ---
PreManage Notification: SHALOM GERMAN Security Cattle Feeder Events No recent Security Events currently on file CRITERIA MET - PDMP CARE PROVIDERS Ava Palacios Nurse Practitioner: Family Current PEACH GROWER PHONE: [phone] Bharat has no Care Guidelines for this patient. E.DLynsey VISIT COUNT (12 MO.) [address] [place]. TOTAL 3 NOTE: Visits indicate total known visits. ED/UCC VISIT TRACKING (12 MO.) 02/16/2020 15:19 [facility] [place] TYPE: Emergency COMPLAINT: - POSSIBLE HEAT STROKE 12/07/2019 23:31 [facility] [place] TYPE: Emergency DIAGNOSES: - Generalized abdominal pain - Post Surgery Pain 09/28/2019 22:28 [facility] [place] TYPE: Emergency COMPLAINT: - WALKING BACKWORDS,TWISTED LEFT LEG,WORKERS COMP DIAGNOSES: - Pain in left knee - Exposure to other specified factors, initial encounter - Sprain of unspecified site of left knee, initial encounter INPATIENT VISIT TRACKING (12 MO.) No inpatient visits to display in this time frame [id number]
[2020-02-16] MEDS ORDERED: DICLOFENAC SODI75 MG PO (15:36)
[2020-02-16] MEDS ORDERED: FUROSEMIDE20 MG PO (15:36)
[2020-02-16] MEDS ORDERED: SIMVASTATIN10 MG PO (15:36)
[2020-02-16] MEDS ORDERED: FLUOXETINE HCL40 MG PO (15:36)
[2020-02-16] MEDS ORDERED: DEXTROAMPHETAMI15 MG PO (15:36)
[2020-02-16] MEDS ORDERED: BUPROPION XL150 MG PO (15:36)
[2020-02-16] MEDS ORDERED: SPIRONOLACTONE50 MG PO (15:37)
[2020-02-16] MEDS ORDERED: TRAMADOL HCL50 MG PO (15:37)
[2020-02-16] MEDS ORDERED: VENTOLIN HFA18 GM INH (15:37)
[2020-02-16] MEDS ORDERED: LORAZEPAM1 MG PO (15:37)
[2020-02-16] MEDS ORDERED: PROMETHAZINE HC25 M1 PO (15:37)
--- NOTE | 2020-02-16 21:35 | NUR ---
PT ARRIVES TO THE UNIT VIA STRETCHER. ADMISSION PROCESS COMPLETE. SIGNIFICANT OTHER AT BEDSIDE. ORIENTED TO ROOM AND POC FOR THIS SHIFT. PT AND SIG OTHER DENY QUESTIONS AND CONCERNS AT THIS TIME. CALL LIGHT IN REACH.
--- NOTE | 2020-02-16 21:45 | NUR ---
PT TO FLOOR FROM ED VIA STRETCHER. ALERT AND ORIENTED X4. ABLE TO TRANSFER SELF TO BED. PT REPORTS 10/10 ABD PAIN. MEDICATED WITH PRN. CL LIQ PROVIDED. PT ORIENTED TO NURSE CALL LIGHT AND ROOM. S/O IN ROOM. PT DENIES QUESTIONS OR CONCERNS. CALL LIGHT IN REACH.
--- NOTE | 2020-02-16 22:10 | NUR ---
ASSESSMENT COMPLETE. SCHEDULED MEDS ADMINISTERED. IVF INFUSING. PRN GIVEN FOR ABD PAIN. CL LIQ PROVIDED. TELE #7. NSR. HR 60'S. NO FURTHER NEEDS. CALL LIGHT IN REACH.
--- NOTE | 2020-02-16 22:40 | NUR ---
PT REPORTS PAIN ABD 9/10. PRN ADMINISTERED PER EMAR. UP TO BR WITH MINIMAL SBA. BACK TO BED, ONEYDA WELL.
--- NOTE | 2020-02-17 00:30 | NUR ---
PT C/O ITCHING. DR. DOMINGUEZ NOTIFIED. NEW TELEPHONE ORDERS RECEIVED VERIFIED WITH READ BACK METHOD. PRN ADMINISTERED FOR ITCHING. NO FURTHER NEEDS. CALL LIGHT IN REACH.
--- NOTE | 2020-02-17 03:00 | NUR ---
PRN ADMINISTERED FOR 8/10 ABD PAIN. VS AND I&O COMPLETE. S/O AT [facility]. PT DENIES FURTHER NEEDS.
--- NOTE | 2020-02-17 06:30 | NUR ---
PT UP TO BR WITH SBA. AT SINK TO DO AM CARES. GAIT STEADY. BACK TO BED, ONEYDA WELL. PRN GIVEN FOR ABD PAIN. FRESH DRINKS PROVIDED. NO FURTHER NEEDS. CALL LIGHT IN REACH.
--- NOTE | 2020-02-17 07:23 | NUR ---
PT AWAKE AT BEDSIDE REPORT RATES PAIN 8/10 CALL LIGHT IN REACH
--- NOTE | 2020-02-17 09:53 | NUR ---
DR REDDY IN TO SEE PT PLAN OF CARE DISCUSSED. VISITOR PRESENT AT BEDSIDE. PT REATES PAIN 03/23 EVEN AFTER ADMINISTRATION OF MORPHINE, REPORTED THIS TO DR REDDY NO NEW ORDERS PLANS FOR CONSULT OF DR MCKEON. I/S PROVIDED PT USES THIS APPROPRIATELY AGREES TO USE IT FREQUENTLY THROUGHOUT THE DAY
--- NOTE | 2020-02-17 10:03 | NUR ---
I checked in with PT to let her know the Evaporator Operator would be here today and to see if she would like him to visit, which she did. PT indicated that she was in pain and we visited for a few minutes. She welcomed my praying for her. I let her know around what time the Web Content Director would be on sight. I gave her name to the Web Content Director.
--- NOTE | 2020-02-17 15:05 | NUR ---
PATIENT WAS IN BED IN THE ROOM, PATEINT NEEDED NO OTHER ASSISTANCE AT THE TIME
--- NOTE | 2020-02-17 15:38 | NUR ---
PT REPORTS GOOD PAIN CONTROL WITH FENT. AGREES WE WILL CONTINUE PO PAIN MEDS AT THE SAME TIME AND USE FENT FOR BREAKTHROUGH. EDUCATION PROVIDED. PT RESTING IN BED, MOTHER IN LAW REMAINS IN THE ROOM. PT TOLERATING CLEAR LIQUIDS NO NAUSEA OR OTHER C/O
--- NOTE | 2020-02-17 18:33 | NUR ---
PT CONTINUES TO TOLERATE CLEAR LIQUIDS NO NAUSEA, PAIN WELL CONTROLLED. PT VERBALIZES UNDERSTANDING NPO AFTER MIDNIGHT. COMPANY REMAINS IN THE ROOM
--- NOTE | 2020-02-17 19:30 | NUR ---
REPORT RECEIVED FROM DAY SHIFT RN. PT LYING IN BED, ALERT AND ORIENTED. REPORTS PAIN IS TOLERABLE AT THIS TIME. CL LIQUIDS PROVIDED. IVF INFUSING. WHITE BOARD UPDATED. CALL LIGHT IN REACH.
--- NOTE | 2020-02-17 20:45 | NUR ---
PT CALLED, REQUESTED JELLO AND BROTH. GIVEN. NO OTHER NEEDS VOICED AT THIS TIME.
--- NOTE | 2020-02-17 21:59 | NUR ---
EVENING ASSESSMENT COMPLETE. PRN ADMINISTERED FOR C/O ABD PAIN. PT DENIES NAUSEA. NO C/O ITCHING. IVF INFUSING. TELE # 7 NSR. HR 70'S. PT USING IS APPROPRIATELY. S/O IN ROOM. LINENS PROVIDED. PT DENIES FURTHER NEEDS. NO QUESTIONS OR CONCERNS. CALL LIGHT IN REACH.
--- NOTE | 2020-02-17 22:33 | EKG ---
[facility] [address] [place], [place] [address] Signed Sinus bradycardia Right bundle branch block Abnormal ECG No previous ECGs available Confirmed by SHALOM REDDY MD ([id number]) on 02/17/2020 10:33:30 PM Electronically Signed By: SHALOM REDDY MD 02/17/20 2233 PATIENT NAME: SHALOM GERMAN Electrocardiogram DATE OF : 74 PHYSICIAN: SHALOM REDDY MD REPORT #: [id number] REPORT IS CONFIDENTIAL AND NOT TO BE RELEASED WITHOUT AUTHORIZATION
--- NOTE | 2020-02-18 00:10 | NUR ---
PRN ADMINISTERED PER EMAR FOR 04/23 ABD PAIN. PT ALSO C/O HEAD ACHE. ICE PACK PROVIDED. NO FURTHER NEEDS. S/O IN ROOM. CALL LIGHT IN REACH.
--- NOTE | 2020-02-18 01:49 | NUR ---
PRN ADMINISTERED WITH SIPS OF WATER FOR 8/10 ABD PAIN. NEW BAG IVF INFUSING PER ORDER. WARM BLANKET PROVIDED.
--- NOTE | 2020-02-18 03:29 | NUR ---
PT RESTING IN BED WITH EYES CLOSED, NAD.
--- NOTE | 2020-02-18 05:50 | NUR ---
ASSESSMENT COMPLETE. PT UP TO BR TO VOID. GAIT STEADY, BACK TO BED. VS AND I&O COMPLETE. PRN ADMINISTERED FOR 8/10 ABD PAIN. PT REMAINS NPO. IVF INFUSING. TELE #7 NSR. HR 70'S. NO FURTHER NEEDS. CALL LIGHT IN REACH.
--- NOTE | 2020-02-18 06:28 | CONS ---
[facility] [address] [place], [place] [address] Signed DATE OF CONSULTATION: 02/17/2020 CHIEF COMPLAINT: Right upper quadrant abdominal pain. HISTORY OF PRESENT ILLNESS: Shalom is a 49-year-old female who had been down to [place] in 2018 for a laparoscopic gastric sleeve resection. She has lost 123 pounds. She says she looks and feels much better. She and family were out baling hay in the last couple of days. She started having abdominal pain, cramping, and vomiting. They brought her to the emergency room for evaluation. In the emergency room, her white count was up and her lipase was at 1768. Liver function tests were otherwise unremarkable. Beta-hCG was negative. Coronavirus is pending. The potassium is little low. The gallbladder ultrasound showed the gallbladder wall at 2 mm with stones and common bile duct was unremarkable at 4 mm. There was question about the right kidney and they were unable to fully evaluate the pancreas. Consequently, she had a CT scan of the abdomen and pelvis performed. They felt that she had a hydropic gallbladder on the CT scan. No obvious inflammatory changes to the pancreas. Consequently, I have been asked to see her as a general surgeon on-call. In the meantime, she has been hydrated and having her potassium replaced. PAST MEDICAL HISTORY: Hypertension, anxiety, depression, hypercholesterolemia, polycystic ovarian syndrome and obesity. PAST SURGICAL HISTORY: Includes a x2, gastric sleeve procedure in 2018 in [place] with 123 pounds weight loss, tonsillectomy, adenoidectomy and a left knee scope. SOCIAL HISTORY: She does not smoke or drink. She has 2 children with her previous . She has a lifelong partner, Jon Irwin at [phone]. They live in [place] and she prefers [facility]. She drives and her primary care provider is Rebecca Palacios, she is a nurse practitioner. FAMILY HISTORY: Dad had skin cancer. REVIEW OF SYSTEMS: Shalom had 10 systems reviewed and no other new issues found. ALLERGIES: None. Electronically Signed By: CORRIE MCKEON MD 02/18/20 0628 PATIENT NAME: SHALOM GERMAN CONSULTATION DATE OF : 74 REPORT #: [id number] PHYSICIAN: CORRIE MCKEON MD PCP: DILIP PALACIOS REPORT IS CONFIDENTIAL AND NOT TO BE RELEASED WITHOUT AUTHORIZATION [facility] [address] [place] [id number] Signed MEDICATIONS: Bupropion, dextroamphetamine, simvastatin, diclofenac p.r.n., fluoxetine, Lasix, and spironolactone. PHYSICAL EXAMINATION: VITAL SIGNS: Blood pressure is 99/54, heart rate 61, respiratory rate 16, temperature is 97.7. She is 100% on room air. She is 90 kg and 5 feet 4 inches. GENERAL: Shalom is a 49-year-old female, who generally appears healthy and at her stated age. She appears a little uncomfortable and in pain. LUNGS: Clear to auscultation. HEART: Regular rate and rhythm. ABDOMEN: Generally soft and flat, but she is tender right over the right upper quadrant and area of the gallbladder, although, I can't specifically palpate a mass or liver edge. LABORATORY DATA: Her white blood cell count was 13.5, it is down to 9.0, hemoglobin 11.6, neutrophils 42, potassium is up to 3.4, BUN 10, creatinine 0.70, lipase was 1768, it is down to 48. Total bilirubin 0.4, AST 24, ALT 13, alkaline phosphatase 154, albumin 3.9. Beta-hCG is negative. Her coronavirus is pending. Glucose is 102. RADIOGRAPHIC STUDIES: Gallbladder ultrasound shows the gallbladder wall at 2 mm, the common bile duct at 4 mm, there were stones in the gallbladder, but unable to directly visualize the pancreas. CT scan of the abdomen and pelvis shows no inflammatory changes of the pancreas, but most likely a hydropic gallbladder. ASSESSMENT AND PLAN: Shalom is a 49-year-old female, who presents with what appears to be pretty classic biliary pancreatitis based on her presentation. However, there are no inflammatory changes for what they could see on the CT scan. She probably has a hydropic gallbladder based on the CT scan and physical exam findings. I reviewed with Shalom and her family the location of function of the gallbladder we discussed laparoscopic versus open cholecystectomy. We have reviewed the expected intraop and postop course. There is risk including, but not limited to bleeding, infection, scarring, change in contour of the skin, damage to bowel, damage to main bile duct and incisional hernias. They have expressed understanding and would like to proceed. We are going to continue her potassium replacement today and increase her pain control. We will start IV antibiotics. We will plan on adding her in the morning. We will also repeat her labs in the morning. They have expressed understanding and agreed to above plan. Electronically Signed By: CORRIE MCKEON MD 02/18/20 0628 PATIENT NAME: SHALOM GERMAN CONSULTATION DATE OF : 74 REPORT #: [id number] PHYSICIAN: CORRIE MCKEON MD PCP: DILIP PALACIOS REPORT IS CONFIDENTIAL AND NOT TO BE RELEASED WITHOUT AUTHORIZATION [address] [place], [place] [address] Signed MD DONTAE Handy/MODL /[id number] cc: MD Rebecca Handy, NANDA Copies: CORRIE MCKEON MD ~ Electronically Signed By: CORRIE MCKEON MD 02/18/20 0628 PATIENT NAME: SHALOM GERMAN CONSULTATION DATE OF : 74 REPORT #: [id number] PHYSICIAN: CORRIE MCKEON MD PCP: DILIP PALACIOS REPORT IS CONFIDENTIAL AND NOT TO BE RELEASED WITHOUT AUTHORIZATION
--- NOTE | 2020-02-18 07:49 | NUR ---
NOC REPORTS PT HAS REQUESTED TO NOT BE DISTURBED. APPEARS TO BE SLEEPING SOUNDLY WITH BOYFRIEND AT BEDSIDE AT TIME OF REPORT.
--- NOTE | 2020-02-18 09:30 | NUR ---
Stopped to speak with Stacy. She is gone for surgery.
--- NOTE | 2020-02-18 09:39 | NUR ---
PT REMAINS NPO FOR SURGERY. DR REDDY IN TO SEE HER. PT TO SHOWER PREPPING FOR SURGERY
--- NOTE | 2020-02-18 09:45 | NUR ---
PATIENT TAKING A SHOWER. RN IN ROOM. LINENS CHANGED. CALL LIGHT WITHIN REACH. NO OTHER NEEDS AT THIS TIME
--- NOTE | 2020-02-18 10:00 | NUR ---
PT TO O/R VIA BED, BOYFRIEND AT HER SIDE
--- NOTE | 2020-02-18 10:03 | NUR ---
PATIENT IN SURGERY. I&O DONE.
--- NOTE | 2020-02-18 12:29 | NUR ---
02/18/20 1229 Sheets,Cindi 1219 PT ARRIVED TO PACU WITH ORAL AIRWAY IN PLACE AND JAW THRUST NEEDED OFF AND ON TO MAINTAIN AIRWAY. PT SLIGHTLY REACTIVE TO PAINFUL STIMULI. 1224 PT WOKE AND AIRWAY REMOVED. PT ENOURAGED TO DEEP BREATHE. PT REORIENTED TO PACU. PT EASILY FALLS BACK TO SLEEP AND RN WAKES PT OFF AND ON AND REMINDS PT TO BREATHE. 1229 PT SNORING AND VSS.
--- NOTE | 2020-02-18 13:22 | NUR ---
PT BACK FROM O/R VIA BED. SHE IS SLEEPING SOUNDLY BREATHING EVEN AND UNLABORED APPEARS COMFORTABLE. 02 ON 2LPM SATS 100%, 02 TURNED DOWN TO 1LPM
--- NOTE | 2020-02-18 13:56 | NUR ---
SATS 98% ON 1 LPM TURNED 02 OFF. PT AWAKENS TO VOICE, RETURNS TO DOZING. BOYFRIEND AT BEDSIDE.
--- NOTE | 2020-02-18 14:21 | NUR ---
PT CONTINUES RESTING EYES CLOSED. SATS MID 90'S ON R/A BOYFRIEND AT BEDSIDE
--- NOTE | 2020-02-18 15:14 | NUR ---
PT UP TO THE TOILET ABLE TO VOID 400ML. TOLERATES WATER AND JELLO REMAINS RESTING IN BED. SCD'S IN PLACE
--- NOTE | 2020-02-18 16:13 | NUR ---
PT UP TO TOILET ABLE TO VOID A SECOND TIME RETURNS TO BED TO REST, BOYFRIEND AT BEDSIDE.
--- NOTE | 2020-02-18 16:15 | NUR ---
CALL LIGHT ANSWERED. PATIENT RESTING IN BED. IN ROOM. PATIENT USES THE BATHROOM. ONE PERSON AND ASSISTING. PATIENT BACKS TO BED. CALL LIGHT WITHIN REACH. NO OTHER NEEDS AT THIS TIME
--- NOTE | 2020-02-18 17:49 | NUR ---
PT HAS BEEN UP AND DOWN TO TOILET SEVERAL TIMES. TOLERATING CLEAR LIQUIDS NO C/O NAUSEA. PAIN MEDS ADEQUATELY EFFECTIVE. BOYFRIEND REMAINS IN THE ROOM
--- NOTE | 2020-02-18 17:55 | NUR ---
PT UP AMBULATING THE MUNIZ WITH BOYRIEND. APPEARS STEADY ON HER FEET, WALKING WELL TOLERATED
--- NOTE | 2020-02-18 18:09 | NUR ---
PATIENT RESTING IN BED. RN AND IN ROOM. I&O DONE. VITAL SIGNS DONE BY RN. CALL LIGHT WITHIN REACH. NO OTHER NEEDS AT THIS TIME
--- NOTE | 2020-02-18 19:36 | NUR ---
REPORT RECEIVED FROM DAY SHIFT RN. PT LYING IN BED WITH EYES CLOSED, NAD. RESPIRATIONS EVEN AND UNLABORED. S/O IN CHAIR NEXT TO BED. IVF INFUSING. WHITE BOARD UPDATED. CALL LIGHT IN REACH.
--- NOTE | 2020-02-18 19:52 | NUR ---
PT ALERT AND ORIENTED. SITTING IN RECLINER. CLEAR LIQUIDS AND ICE PACK FOR ABDOMEN PROVIDED.
--- NOTE | 2020-02-18 21:30 | NUR ---
EVENING ASSESSMENT COMPLETE. PT LYING IN BED, DROWSY BUT AWAKENS EASILY. VS AND I&O COMPLETE. FRESH LIQUIDS PROVIDED. ICE PACK TO ABD. SCOPE SITES X 4 COVERED WITH GAUZE AND TAPE. SCANT AMOUNT OF SS DRAINAGE ON UMBILICUS SITE. BOWEL TONES HYPOACTIVE. PT REPORTS PASSING GAS. SCD'S IN PLACE. S/O IN ROOM. CALL LIGHT IN REACH.
--- NOTE | 2020-02-18 21:50 | NUR ---
PT REPORTS ABD PAIN 8/10 DESPITE PREVIOUS INTERVENTIONS. IV PRN ADMINISTERED.
--- NOTE | 2020-02-18 22:40 | NUR ---
DR. REDDY NOTIFIED OF PTS PAIN NOT BEING CONTROLLED WITH PRN PAIN MEDS. NEW WRITTEN ORDERS RECEIVED.
--- NOTE | 2020-02-18 23:45 | NUR ---
PRN ADMINISTERED FOR 8/10 ABD PAIN. PT UP TO BR WITH ASSISTANCE FROM S/O. REPORTS SHE ONEYDA WELL. IN BED WITH SCD'S IN PLACE. WARM BLANKET GIVEN. FRESH WATER PROVIDED.
--- NOTE | 2020-02-19 03:29 | NUR ---
PT RESTING IN BED WITH EYES CLOSED, NAD.
--- NOTE | 2020-02-19 03:47 | NUR ---
SBA FROM BATHROOM TO BED. PRIMARY RN WAS WITH PATIENT.
--- NOTE | 2020-02-19 03:49 | NUR ---
PT BACK TO BED FROM BR. ONEYDA WELL. SCD'S IN PLACE. FRESH ICE TO INCISION. LAP SITES X4 UNCHANGED. ASSESSMENT COMPLETE. PT REPORTS PAIN IS BETTER CONTROLLED. NO FURTHER NEEDS.
--- NOTE | 2020-02-19 05:27 | NUR ---
PT UP TO BR WITH SBA. GAIT STEADY. BACK TO BED, ONEYDA WELL. SCD'S IN PLACE. IVF INFUSING. FRESH ICE TO INCISION. PRN ADMINISTERED FOR 7/10 ABD PAIN. FRESH LIQUIDS PROVIDED. PT DENIES FURTHER NEEDS. CALL LIGHT IN REACH.
--- NOTE | 2020-02-19 06:14 | OR ---
[facility] [address], [place] [address] Signed DATE OF OPERATION: 02/18/2020 SURGEON: Corrie Mckeon MD PREOPERATIVE DIAGNOSIS: Biliary pancreatitis. POSTOPERATIVE DIAGNOSES: 1. Biliary pancreatitis. 2. Cholesterolosis. PROCEDURE: Laparoscopic cholecystectomy with intraoperative cholangiogram. ESTIMATED BLOOD LOSS: None. FINDINGS: Shalom had iati-ih-bmaqqvwq inflammatory changes with edema around the neck of her gallbladder. Intraoperative cholangiogram was unremarkable. Specifically, no filling defects. Contrast did flow readily into the duodenum. She had multiple small 3 to 4 mm yellow cholesterol stones in the gallbladder. She had significant cholesterolosis of the gallbladder wall. INDICATIONS: Shalom is a 49-year-old female, who had been down to [place] in 2018 for a gastric sleeve procedure. She has lost around 123 pounds. She had been doing fine, but having issues with abdominal pain. She had been over to [facility] with abdominal pain in November of this year. She came to our emergency room with abdominal pain, cramping, and vomiting. She seemed to be tender in the right upper quadrant. Initially, the white count was up at 13.5. Hemoglobin slightly down at 11.6. The lipase was high at 1768. Total bilirubin normal at 0.4, AST normal at 24, ALT normal at 13, alkaline phosphatase was slightly up at 154. The coronavirus came back negative and her beta-hCG was negative. The gallbladder ultrasound showed multiple stones within the gallbladder. The common bile duct was unremarkable around 4 mm. The gallbladder wall did not appear particularly thickened at 2 mm. The pancreas in the right kidney was not well visualized. Consequently, CT scan of abdomen and pelvis was performed, there was concern about a hydropic gallbladder. No inflammatory changes to the pancreas itself. The patient was admitted to our Internal Medicine Service. She was hydrated, given pain control overnight. There was some consideration of course that her pancreatitis was Electronically Signed By: CORRIE MCKEON MD 02/19/20 0614 PATIENT NAME: SHALOM GERMAN OPERATIVE REPORT DATE OF : 74 REPORT #: [id number] PHYSICIAN: CORRIE MCKEON MD PCP: AVA FANG REPORT IS CONFIDENTIAL AND NOT TO BE RELEASED WITHOUT AUTHORIZATION [address] [address] Signed from the hydrochlorothiazide that she is using intermittently mainly during her menstrual cycles. She was currently using some of that at the time of admission. I was asked to see her as a general surgeon following day. She was in the process of being hydrated and have her potassium replaced. She was tender in the right upper quadrant. I reviewed with Shalom the location and function of the gallbladder. We discussed laparoscopic versus open cholecystectomy. We discussed the idea of the gallstones in relationship to pancreatitis. We reviewed the expected intraop and postop course, she understands there is risk including, but not limited to bleeding, infection, scarring, change in contour of the skin, damage to bowel, damage to main bile duct, incisional hernias, the inability to relieve her pancreatitis and/or the possible need for additional procedures. She expressed her understanding and wished to proceed. DESCRIPTION OF PROCEDURE: I have met with Shalom and her finance earlier today, and we reviewed the above findings. She was taken into the operating room and placed in supine position under general endotracheal tube anesthesia. She was given preoperative antibiotics along with subcutaneous heparin. SCDs were utilized. She was then prepped and draped in the usual sterile fashion. We could not specifically palpate the gallbladder at that time. All trocars were placed in her usual positions under direct visualization camera without difficulty. Her gallbladder was then grasped and elevated in the right upper quadrant. We can tell she had mild edema in the gallbladder wall, particularly around the neck. The triangle of Calot was dissected free and a clip was placed across the cystic artery. The intraoperative cholangiocatheter was inserted into the cystic duct. The intraoperative cholangiogram was then performed. We had taken pictures throughout for photodocumentation. The cystic duct stump was then secured with a PDS Endoloop and 2 clips were placed on the cystic duct stump to toby its location. The gallbladder was then carefully removed from the gallbladder fossa with the help of the cautery and placed into an EndoCatch bag. Again, the neck of the gallbladder had some edema as it traveled up towards the top of the gallbladder, there was less edema. We could see the cholesterolosis through the wall of the gallbladder. The gallbladder had been placed into an EndoCatch bag. The right upper quadrant was irrigated and suctioned out until clear. We then used our laparoscopic suturing device to pass 0-Vicryl suture on either side of the fascia of the subxiphoid trocar site. This was tied down to close this fascia primarily. After this, all the gas was allowed to escape and all the trocars were removed. We closed the fascia of the supraumbilical trocar site with interrupted pyhils-ru-ykgng and simple 0-Vicryl sutures. The gallbladder was opened on the back table by our circulating nurse for photodocumentation. We injected local anesthetic into all trocar sites. Each trocar site was irrigated and suctioned out until clear. The skin and dermis of each trocar site were closed with interrupted 3-0 subcuticular Monocryl sutures. Dry gauze and tape were applied all incisions. Shalom was awakened from anesthesia, extubated in the OR, and taken to recovery room in stable condition. Electronically Signed By: CORRIE MCKEON MD 02/19/20 0614 PATIENT NAME: SHALOM GERMAN OPERATIVE REPORT DATE OF : 74 REPORT #: [id number] PHYSICIAN: CORRIE MCKEON MD PCP: AVA FANG REPORT IS CONFIDENTIAL AND NOT TO BE RELEASED WITHOUT AUTHORIZATION [address] [address] Signed MD DONTAE Handy/ES /[id number] cc: MD Ava Handy FNP Copies: CORRIE MCKEON MD, SHARA FNP ~ Electronically Signed By: CORRIE MCKEON MD 02/19/20 0614 PATIENT NAME: SHALOM GERMNA OPERATIVE REPORT DATE OF : 74 REPORT #: [id number] PHYSICIAN: CORRIE MCKEON MD PCP: AVA FANG REPORT IS CONFIDENTIAL AND NOT TO BE RELEASED WITHOUT AUTHORIZATION
--- NOTE | 2020-02-19 07:37 | NUR ---
Pt resting in bed, respirations even and non labored. Pt has no distress noted. Significant other at bedside resting in chair.
--- NOTE | 2020-02-19 09:00 | NUR ---
Pt in shower at this time. Significant other in room at this time. Pt has no needs.
--- NOTE | 2020-02-19 09:49 | NUR ---
Abdominal dressings removed per doc order. X4 lap sites noted; all are closed, no drainage noted, healing well. Pt showered. Two tabs of [place] 10/325mg po administered for reports of 8/10 abdominal pain.
--- NOTE | 2020-02-19 11:01 | NUR ---
Pt lying in bed, respirations even and non labored. Pt reports improved abdominal pain. Significant other at bedside. No needs at this time. Personal supplies and call light within reach.
--- NOTE | 2020-02-19 11:34 | NUR ---
Breakfast trays removed; pt tolerated 100% of her food. Pt reports she is doing well. No needs at this time. Call light within reach.
[2020-02-19] MEDS ORDERED: NORCO 10-325 T1 EACH PO (12:00)
--- NOTE | 2020-02-19 12:35 | NUR ---
PATIENT SITTING UP IN BED. THE FINAL VITAL SIGNS WERE OBTAINED PRIOR TO DISCHARGE FROM THE UNIT
== END 2020-02-19 12:40 | disposition home or self-care (01) | DRG 419 ==
LOC: ED 15:17 → MS 21:24
PROVIDERS: Colon & Rectal Surgery; ADMIT Internal Medicine
PROC: BF101ZZ Fluoroscopy of Bile Ducts using Low Osmolar Contrast (ICD-10-PCS; 2020-02-18)
PROC: 0FT44ZZ Resection of Gallbladder, Percutaneous Endoscopic Approach (ICD-10-PCS; principal; 2020-02-18 13:00)
DX: K85.10 Biliary acute pancreatitis without necrosis or infection (principal); K82.4 Cholesterolosis of gallbladder; I10 Essential (primary) hypertension; F41.9 Anxiety disorder, unspecified; F32.9 Major depressive disorder, single episode, unspecified; E78.00 Pure hypercholesterolemia, unspecified; E87.6 Hypokalemia; E28.2 Polycystic ovarian syndrome; E66.9 Obesity, unspecified; Z20.828 Contact with and (suspected) exposure to other viral communicable diseases; Z98.84 Bariatric surgery status; Z79.899 Other long term (current) drug therapy; Z79.1 Long term (current) use of non-steroidal anti-inflammatories (NSAID); Z79.891 Long term (current) use of opiate analgesic; Z68.33 Body mass index [BMI] 33.0-33.9, adult
CPT/HCPCS: 00790; 36415; 74177; 74300; 76705; 80048; 80053; 80061; 81001; 83690; 83735; 84100; 84703; 85025; 93005; 93010; 94760; 96361; 96374; 96375; 99285-25; C9113; C9803; J0330; J0690; J1100; J1170; J1200; J1650; J1885; J2001; J2250; J2270; J2405; J2704; J3010; J3475; J3480; J7030; J7060; J7120; J7121; Q9967; U0002

== ENCOUNTER 2020-03-14 14:31 | Emergency (ER) | payer OTHER ==
[~2020-03-14] VITALS: Ht 162.6 cm; Wt 83.9 kg
--- OUTSIDE RECORDS SUMMARY | ~2020-03-14 | XMS | Encounter Summary ---
Demographics + + + | Address | [address] | | | [place] [address] | + + + | Home Phone | | + + + | Preferred Language | Unknown | + + + | Marital Status | | + + + | Protestant Affiliation | Unknown | + + + | Race | Unknown | + + + | Ethnic Group | Unknown | + + + Author + + + | Author | [facility] | | | and [place] | + + + | Organization | [facility] | | | and [place] | + + + | Address | Unknown | + + + | Phone | Unavailable | + + + Support + + +---------+ + | Name | Relationship | Address | Phone | + + +---------+ + | Bradley Menchaca | ECON | Unknown | | + + +---------+ + Care Team Providers + +------+ + | Care Steam Presser Name | Role | Phone | + +------+ + PCP | Unavailable | + +------+ + Encounter Details +--------+ + + + + | Date | Type | Department | Care Team | Description | +--------+ + + + + | 08/22/ | Hospital | [facility] | Rodrigo Flor | | | 2003 - | Encounter | [facility] | MD Carlie Gupta | | | | | AND DELIVERY [address] | | | 08/24/ | | [address] | [place] [address] | | | 2003 | | [place], [place] | [phone] | | | | | [address] | | | | | | [phone] | | | +--------+ + + + + Social History + +-------+ +--------+------+ | Tobacco Use | Types | Packs/Day | Years | Date | | | | | Used | | + +-------+ +--------+------+ | Never Assessed | | | | | + +-------+ +--------+------+ + + + | Sex Assigned at | Date Recorded | | | | + + + | Not on file | | + + + documented as of this encounter Plan of Treatment Not on filedocumented as of this encounter Visit Diagnoses Not on filedocumented in this encounter"
--- OUTSIDE RECORDS SUMMARY | ~2020-03-14 | XMS | Encounter Summary ---
Demographics + + + | Address | [address] | | | [place] [address] | + + + | Home Phone | | + + + | Preferred Language | Unknown | + + + | Marital Status | Single | + + + | Presybeterian Affiliation | Unknown | + + + | Race | White | + + + | Ethnic Group | Not or | + + + Author + + + | Author | [facility] | + + + | Organization | [facility] | + + + | Address | Unknown | + + + | Phone | Unavailable | + + + Support + + + + + | Name | Relationship | Address | Phone | + + + + + | Deyanira Colon | ECON | [address] | | | | | [place] | | | | | [address] | | + + + + + Care Team Providers + +------+ + | Care Senior Electronics Design Engineer Name | Role | Phone | + [...] [id number] | | | | | | [place], [place] | | | | | | [address] | | | | | | [phone] | | | +--------+ + + + [...] | + + + + + | [facility] | [address] | [place] [address] | | | PATHOLOGY | [address] | | | + + + + + documented in this encounter Visit Diagnoses Not on filedocumented in this encounter"
--- OUTSIDE RECORDS SUMMARY | ~2020-03-14 | XMS | Encounter Summary ---
Demographics + + + | Address | [address] | | | [place] [address] | + + + | Home Phone [...] Author + + + | Author | [facility] | + + + | Organization | [facility] | + + + | Address | Unknown | + + + | Phone | Unavailable | + + + Support + + + + + | Name | Relationship | Address | Phone | + + + + + | Deyanira Colon | ECON | January | | | | | [place] | | | | | [address] | | + + + + + Care Team Providers + +------+ + | Care Slitter Service And Setter Name | Role | Phone | [...] [id number] | | | | | | [place], [place] | | | | | | [address] | | | | | | [phone] | | | +--------+ + + + [...] | + + + + + | [facility] | [address] | [place] [address] | | | PATHOLOGY | [address] [...] | + + + + + | [facility] | [address] | [place] [address] | | | PATHOLOGY | [address] [...] | + + + + + | [facility] | [address] | [place] [address] | | | PATHOLOGY | [address] [...] | + + + + + | [facility] | [address] | [place] [address] | | | PATHOLOGY | [address] | | | + + + + + documented in this encounter Visit Diagnoses Not on filedocumented in this encounter"
--- OUTSIDE RECORDS SUMMARY | ~2020-03-14 | XMS | Encounter Summary ---
Demographics + + + | Address | [address] | | | [place] [address] | + + + | Home Phone | | + + + | Preferred Language | Unknown | + + + | Marital Status | Single | + + + | Confucianist Affiliation | Unknown | + + + [...] [place] | | | | | [address] | | + + + + + Care Team Providers + +------+ + | Care Billing Clerk Name | Role | Phone | + +------+ + PCP | Unavailable | + +------+ + Encounter Details +--------+ + + + + | Date | Type | Department | Care Team | Description | +--------+ + + + + | 03/22/ | Results | | Other, Faculty | | | 2000 | Only | | [phone] | | +--------+ + + + + [...] | + + + + + | [facility] | [address] | [place] [address] | | | LABORATORY | | | [...] | + + + + + | [facility] | [address] | [place] [address] | | | LABORATORY | | | | + + + + + documented in this encounter Visit Diagnoses Not on filedocumented in this encounter"
--- OUTSIDE RECORDS SUMMARY | ~2020-03-14 | XMS | Clinical Summary ---
Demographics + + + | Address | [address] | | | [place] [address] | + + + | Home Phone [...] [place] | | | | | [address] | | + + + + + Care Team Providers + +------+ + | Care Oyster Culler Name | Role | Phone | + +------+ + PCP | Unavailable | + +------+ + Source Comments [facility] is fully live on both [facility] and [facility] Allergies Not on File Medications Not on file Active Problems Not on file Social History + +-------+ +--------+------+ | Tobacco [...] recent travel history available. | + + Last Filed Vital Signs Not on file Plan of Treatment + + + + + | Health Maintenance | Due Date | Last Done | Comments | + + + + + | Influenza (Flu) | | | | | vaccination (#1) | 9 | | | + + + + + | Pneumococcal | Aged Out | | No longer eligible | | vaccination | | | based on patient's | | | | | age to complete this | | | | | topic | + + + + + Results Not on filefrom Last 3 Months"
--- OUTSIDE RECORDS SUMMARY | ~2020-03-14 | XMS | Clinical Summary ---
Demographics + + + | Address | [address] | | | [place] [address] | + + + | Home Phone | | + + + | Preferred Language | Unknown | + + + | Marital Status | Single | + + + | Jainism Affiliation | Unknown | + + + [...] [place] | | | | | [address] | | + + + + + Care Team Providers + +------+ + | Care Stakes Player Name | Role | Phone | + +------+ + PCP | Unavailable | + +------+ + Source Comments [facility] is fully live on both [facility] and [facility] Allergies Not on File Medications Not [...]
--- OUTSIDE RECORDS SUMMARY | ~2020-03-14 | XMS | Encounter Summary ---
Demographics + + + | Address | [address] | | | [place] [address] | + + + | Home Phone | | + + + | Preferred Language | Unknown | + + + | Marital Status | Single | + + + | Uatsdin Affiliation | Unknown | + + + | Race | White | + + + | Ethnic Group | Not or | + + + Author + + + | Author | [facility] | + + + | Organization | [facility] | + + + | Address | Unknown | + + + | Phone | Unavailable | + + + Support + + + + + | Name | Relationship | Address | Phone | + + + + + | Deyanira Colon | ECON | January | | | | | [place] | | | | | [address] | | + + + + + Care Team Providers + +------+ + | Care Neurology Tech Name | Role | Phone | + [...] [id number] | | | | | | [place], [place] | | | | | | [address] | | | | | | [phone] | | | +--------+ + + + [...] | + + + + + | [facility] | [address] | [place] [address] | | | PATHOLOGY | [address] | | | + + + + + documented in this encounter Visit Diagnoses Not on filedocumented in this encounter"
--- OUTSIDE RECORDS SUMMARY | ~2020-03-14 | XMS | Encounter Summary ---
Demographics + + + | Address | [address] | | | [place] [address] | + + + | Home Phone | | + + + | Preferred Language | Unknown | + + + | Marital Status | Single | + + + | Zoroastrian Affiliation | Unknown | + + + | Race | White | + + + | Ethnic Group | Not or | + + + Author + + + | Author | [facility] | + + + | Organization | [facility] | + + + | Address | Unknown | + + + | Phone | Unavailable | + + + Support + + + + + | Name | Relationship | Address | Phone | + + + + + | Deyanira Colon | ECON | January | | | | | [place] | | | | | [address] | | + + + + + Care Team Providers + +------+ + | Care Extension Service Agent Name | Role | Phone | + +------+ + PCP | Unavailable | + +------+ + Encounter Details +--------+ + + + + | Date | Type | Department | Care Team | Description | +--------+ + + + + | 06/30/ | Results | [facility] [address] | Other, Faculty | | | 1993 | Only | [address] | [phone] | | | | | [place], [place] | | | | | | [address] | | | | | | [phone] | | | +--------+ + + + [...] | + +--------+ + + + | SURGICAL PATHOLOGY | Routin | 06/30/1994 | | Results for this | | | e | | | procedure are in the | | | | | | results section. | + +--------+ + + + documented in this encounter Results SURGICAL PATHOLOGY (06/30/1994) + + + + + + | Component | Value | Ref Range | Performed | Pathologist | | | | | At | Signature | + + + + + + | SURGICAL | SOURCE OF SPECIMEN: SEE | | [facility] | | | PATHOLOGY | RESULTS | | DEPARTMENT | | | | Preliminary | | OF | | | | History:CLINICAL | | PATHOLOGY | | | | HISTORYThe patient is a | | | | | | 23 year old female with | | | | | | increasing alk. phos. | | | | | | Theclinician wishes to | | | | | | rule out primary biliary | | | | | | sclerosis and | | | | | | cholestasis. GROSS | | | | | | DESCRIPTIONA single | | | | | | specimen is received in | | | | | | formalin labeled liver | | | | | | biopsy. Itconsists of a | | | | | | single, cylindrical, christian | | | | | | tissue fragment | | | | | | measuring 2.8 cm.in | | | | | | length by 0.2 cm. in | | | | | | diameter. The specimen | | | | | | is wrapped and | | | | | | submittedin toto in a | | | | | | single cassette.Dictated | | | | | | by: Magnus Mccabe, | | | | | | Marcie/kenton FINAL | | | | | | DIAGNOSISLIVER BIOPSY: | | | | | | FOCAL MILD FATTY | | | | | | CHANGE (SEE NOTE) | | | | | | Note: Very few bile | | | | | | ducts are present in | | | | | | this biopsy, and those | | | | | | presentdo not show the | | | | | | changes found in primary | | | | | | biliary cirrhosis. | | | | | | There is noevidence of | | | | | | cholestasis. A trichrome | | | | | | stain is reviewed for | | | | | | diagnosticpurposes. | | | | | | Case reviewed by: | | | | | | Dariana Finch, | | | | | | M.D. :td | | | | | | My electronic signature | | | | | | indicates that I have | | | | | | personally reviewed | | | | | | alldiagnostic slides, | | | | | | the gross and/or | | | | | | microscopic portion of | | | | | | thisreport and | | | | | | formulated the final | | | | | | diagnosis. | | | | + + + + + + + + | Specimen | + + | Other | + + + + + + + | Performing | Address | City/State/Zipcode | Phone Number | | Organization | | | | + + + + + | [facility] | [address] | [place] [address] | | | PATHOLOGY | [address] | | | + + + + + documented in this encounter Visit Diagnoses Not on filedocumented in this encounter"
--- OUTSIDE RECORDS SUMMARY | ~2020-03-14 | XMS | Encounter Summary ---
Demographics + + + | Address | [address] | | | [place] [address] | + + + | Home Phone | | + + + | Preferred Language | Unknown | + + + | Marital Status | Single | + + + | Oriental Orthodox Affiliation | Unknown | + + + [...] [place] | | | | | [address] | | + + + + + Care Team Providers + +------+ + | Care Solar Sales Advisor Name | Role | Phone | + [...] as of this encounter Progress Notes Eugenio, Neurophysiological Technician In - 06/27/2006 3:08 AM PSTCLINIC DATE: [...] performed by her primary care physician in [facility], Dr. Lowery. Henri Marshall M.D. [place] / [place] [id number] / [id number] / [id number] / [id number] signed by Eugenio, Neurophysiological Technician In at 06/27/2006 3:08 AM PSTInterf tramaine, Neurophysiological Technician In - 06/27/2006 3:08 AM PSTCLINIC DATE: [...] Telephone followup as indicated. Xiang Lauren. / [id number] / [id number] / [id number] / [id number] signed by Interface, Neurophysiological Technician In at 06/27/2006 3:08 AM PSTdocume nted in this encounter Plan of Treatment Not on filedocumented as of this encounter Visit Diagnoses Not on filedocumented in this encounter"
--- OUTSIDE RECORDS SUMMARY | ~2020-03-14 | XMS | Encounter Summary ---
Demographics + + + | Address | [address] | | | [place] [address] | + + + | Home Phone [...] Author + + + | Author | [facility] | + + + | Organization | [facility] | + + + | Address | Unknown | + + + | Phone | Unavailable | + + + Support + + + + + | Name | Relationship | Address | Phone | + + + + + | Deyanira Colon | ECON | January | | | | | [place] | | | | | [address] | | + + + + + Care Team Providers + +------+ + | Care Talent Development Specialist Name | Role | Phone | + +------+ + PCP | Unavailable | + +------+ + Encounter Details +--------+ + + + + | Date | Type | Department | Care Team | Description | +--------+ + + + + | 06/30/ | Results | LAB CORE [address] | Other, Faculty | | | 1993 | Only | [address] | [phone] | | | | | [place], [place] | | | | | | [address] | | | | | | [phone] | | | +--------+ + + + [...] | + + + + + | [facility] | [address] | [place] [address] | | | PATHOLOGY | [address] | | | + + + + + documented in this encounter Visit Diagnoses Not on filedocumented in this encounter"
--- OUTSIDE RECORDS SUMMARY | ~2020-03-14 | XMS | Encounter Summary ---
Demographics + + + | Address | [address] | | | [place] [address] | + + + | Home Phone | | + + + | Preferred Language | Unknown | + + + | Marital Status | Single | + + + | Caodaism Affiliation | Unknown | + + + | Race | White | + + + | Ethnic Group | Not or | + + + Author + + + | Author | [facility] | + + + | Organization | [facility] | + + + | Address | Unknown | + + + | Phone | Unavailable | + + + Support + + + + + | Name | Relationship | Address | Phone | + + + + + | Deyanira Colon | ECON | January | | | | | [place] | | | | | [address] | | + + + + + Care Team Providers + +------+ + | Care Die Maker Apprentice Name | Role | Phone | + [...] | | | | | | [place], [place] | | | | | | [address] | | | | | | [phone] | | | +--------+ + + + [facility] | [address] | [place] [address] | | | PATHOLOGY | [address] [...] [facility] | [address] | [place] [address] | | | PATHOLOGY | [address] [...] [facility] | [address] | [place] [address] | | | PATHOLOGY | [address] [...] [facility] | [address] | [place] [address] | | | PATHOLOGY | [address] | | | + + + + + documented in this encounter Visit Diagnoses Not on filedocumented in this encounter"
--- OUTSIDE RECORDS SUMMARY | ~2020-03-14 | XMS | Encounter Summary ---
Demographics + + + | Address | [address] | | | [place] [address] | + + + | Home Phone | | + + + | Preferred Language | Unknown | + + + | Marital Status | Single | + + + | Yarsanism Affiliation | Unknown | + + + [...] [place] | | | | | [address] | | + + + + + Care Team Providers + +------+ + | Care Engine Turner Name | Role | Phone | + +------+ + PCP | Unavailable | + +------+ + Encounter Details +--------+ + + + + | Date | Type | Department | Care Team | Description | +--------+ + + + + | 06/30/ | Results | | Other, Faculty | | | 1993 | Only | | [phone] | | +--------+ + + + + [...] | | + +---------+ + + | [facility] DEPARTMENT OF | | | | | RADIOLOGY | | | | + +---------+ + + documented in this encounter Visit Diagnoses Not on filedocumented in this encounter"
--- OUTSIDE RECORDS SUMMARY | ~2020-03-14 | XMS | Encounter Summary ---
Demographics + + + | Address | [address] | | | [place] [address] | + + + | Home Phone | | + + + | Preferred Language | Unknown | + + + | Marital Status | Single | + + + | Moravian Affiliation | Unknown | + + + | Race | White | + + + | Ethnic Group | Not or | + + + Author + + + | Author | [facility] | + + + | Organization | [facility] | + + + | Address | Unknown | + + + | Phone | Unavailable | + + + Support + + + + + | Name | Relationship | Address | Phone | + + + + + | Deyanira Colon | ECON | January | | | | | [place] | | | | | [address] | | + + + + + Care Team Providers + +------+ + | Care Welt Slasher Name | Role | Phone | + [...] as of this encounter Progress Notes Eugenio, Upholsterer Outside In - 06/27/2006 3:08 AM PSTCLINIC DATE: [...] performed by her primary care physician in [facility], Dr. Lowery. Henri Marshall M.D. [place] / CHAR[place]IE [id number] / [id number] / [id number] / [id number] signed by Eugenio, Upholsterer Outside In at 06/27/2006 3:08 AM PSTInterf tramaine, Upholsterer Outside In - 06/27/2006 3:08 AM PSTCLINIC DATE: [...] Telephone followup as indicated. Xiang Lauren. / [id number] / [id number] / [id number] / [id number] signed by Interface, Upholsterer Outside In at 06/27/2006 3:08 AM PSTdocume nted in this encounter Plan of Treatment Not on filedocumented as of this encounter Visit Diagnoses Not on filedocumented in this encounter"
--- OUTSIDE RECORDS SUMMARY | ~2020-03-14 | XMS | Encounter Summary ---
Demographics + + + | Address | [address] | | | [place] [address] | + + + | Home Phone | | + + + | Preferred Language | Unknown | + + + | Marital Status | Single | + + + | Holiness Affiliation | Unknown | + + + | Race | White | + + + | Ethnic Group | Not or | + + + Author + + + | Author | [facility] | + + + | Organization | [facility] | + + + | Address | Unknown | + + + | Phone | Unavailable | + + + Support + + + + + | Name | Relationship | Address | Phone | + + + + + | Deyanira Colon | ECON | January | | | | | [place] | | | | | [address] | | + + + + + Care Team Providers + +------+ + | Care Parts Clerk Plant Maintenance Name | Role | Phone | + [...] [id number] | | | | | | [place], [place] | | | | | | [address] | | | | | | [phone] | | | +--------+ + + + [...] [facility] | [address] | [place] [address] | | | PATHOLOGY | [address] [...] [facility] | [address] | [place] [address] | | | PATHOLOGY | [address] [...] [facility] | [address] | [place] [address] | | | PATHOLOGY | [address] [...] [facility] | [address] | [place] [address] | | | PATHOLOGY | [address] [...] [facility] | [address] | [place] [address] | | | PATHOLOGY | [address] | | | + + + + + documented in this encounter Visit Diagnoses Not on filedocumented in this encounter"
--- OUTSIDE RECORDS SUMMARY | ~2020-03-14 | XMS | Encounter Summary ---
Demographics + + + | Address | [address] | | | [place] [address] | + + + | Home Phone [...] [place] | | | | | [address] | | + + + + + Care Team Providers + +------+ + | Care Car Tester Name | Role | Phone | + +------+ + PCP | Unavailable | + +------+ + Encounter Details +--------+ + + + + | Date | Type | Department | Care Team | Description | +--------+ + + + + | 06/30/ | Results | | Other, Faculty | | | 1993 | Only | | [phone] | | +--------+ + + + + [...] | | + +---------+ + + | [facility] DEPARTMENT OF | | | | | RADIOLOGY | | | | + +---------+ + + documented in this encounter Visit Diagnoses Not on filedocumented in this encounter"
--- OUTSIDE RECORDS SUMMARY | ~2020-03-14 | XMS | Encounter Summary ---
Demographics + + + | Address | [address] | | | [place] [address] | + + + | Home Phone | | + + + | Preferred Language | Unknown | + + + | Marital Status | | + + + | Temple Affiliation | Unknown | + + + | Race | Unknown | + + + | Ethnic Group | Unknown | + + + Author + + + | Author | [facility] | | | and [place] | + + + | Organization | [facility] | | | and [place] | [...] Team Providers + +------+ + | Care Copy Camera Operator Name | Role | Phone | + +------+ + PCP | Unavailable | + +------+ + Encounter Details +--------+ + + + + | Date | Type | Department | Care Team | Description | +--------+ + + + + | 08/26/ | Hospital | [facility] | [address] | ANGELICA POSTPART | | 2003 | Encounter | CON[address] | [address] | FOLLOW-UP | | | | [address] | [address] | | | | | [place], [place] | [place] [address] | | | | | [address] | [phone] | | | | | [phone] | | | +--------+ + + + [...] + | Diagnosis | + + | Routine follow-up | + + documented in this encounter"
--- OUTSIDE RECORDS SUMMARY | ~2020-03-14 | XMS | Encounter Summary ---
Demographics + + + | Address | [address] | | | [place] [address] | + + + | Home Phone | | + + + | Preferred Language | Unknown | + + + | Marital Status | | + + + | Uatsdin Affiliation | Unknown | + + + | Race | Unknown | + + + | Ethnic Group | Unknown | + + + Author + + + | Author | [facility] | | | and [place] | + + + | Organization | [facility] | | | and [...] Providers + +------+ + | Care Manager Food Name | Role | Phone | + +------+ + PCP | Unavailable | + +------+ + Encounter Details +--------+ + + + + | Date | Type | Department | Care Team | Description | +--------+ + + + + | 04/27/ | Hospital | [facility] | Conversion | Unspecified | | 1994 - | Encounter | [facility] | Transaction, | hypertension, with | | | | [address] DEL[address] | Provider Unknown | delivery | | 05/01/ | | [address] | | | | 1994 | | [place], [place] | (Fax) | | | | | [address] | | | | | | [phone] | | | +--------+ + + + [...]
--- OUTSIDE RECORDS SUMMARY | ~2020-03-14 | XMS | Encounter Summary ---
Demographics + + + | Address | [address] | | | [place] [address] | + + + | Home Phone | | + + + | Preferred Language | Unknown | + + + | Marital Status | | + + + | Yazdanism Affiliation | Unknown | + + + | Race | Unknown | + + + | Ethnic Group | Unknown | + + + Author + + + | Author | [facility] | | | and [place] | + + + | Organization | [facility] | | | and [place] | [...] Team Providers + +------+ + | Care Escrow Agent Name | Role | Phone | + +------+ + PCP | Unavailable | + +------+ + Encounter Details +--------+ + + + + | Date | Type | Department | Care Team | Description | +--------+ + + + + | 08/29/ | Hospital | [facility] | [address] | МАРИЯ | | 2003 | Encounter | [facility] | [address] | NOS- | | | | [address] DEL[address] | [address] | | | | | [place] | [place] [address] | | | | | [place], [place] | [phone] | | | | | [address] | | | | | | [phone] | | | +--------+ + + + [...]
--- OUTSIDE RECORDS SUMMARY | ~2020-03-14 | XMS | Encounter Summary ---
Demographics + + + | Address | [address] | | | [place] [address] | + + + | Home Phone [...] [place] | | | | | [address] | | + + + + + Care Team Providers + +------+ + | Care Interior Design Director Name | Role | Phone | + +------+ + PCP | Unavailable | + +------+ + Encounter Details +--------+ + + + + | Date | Type | Department | Care Team | Description | +--------+ + + + + | 03/22/ | Results | | Other, Faculty | | | 2000 | Only | | [phone] | | +--------+ + + + + [...] | + + + + + | [facility] | [address] | [place] [address] | | | LABORATORY | | | [...] | + + + + + | [facility] | [address] | [place] [address] | | | LABORATORY | | | | + + + + + documented in this encounter Visit Diagnoses Not on filedocumented in this encounter"
--- OUTSIDE RECORDS SUMMARY | ~2020-03-14 | XMS | Encounter Summary ---
Demographics + + + | Address | [address] | | | [place] [address] | + + + | Home Phone | | + + + | Preferred Language | Unknown | + + + | Marital Status | Single | + + + | Restorationism Affiliation | Unknown | + + + | Race | White | + + + | Ethnic Group | Not or | + + + Author + + + | Author | [facility] | + + + | Organization | [facility] | + + + | Address | Unknown | + + + | Phone | Unavailable | + + + Support + + + + + | Name | Relationship | Address | Phone | + + + + + | Deyanira Colon | ECON | January | | | | | [place] | | | | | [address] | | + + + + + Care Team Providers + +------+ + | Care Investor Relations Coordinator Name | Role | Phone | + [...] [id number] | | | | | | [place], [place] | | | | | | [address] | | | | | | [phone] | | | +--------+ + + + [...] | + + + + + | [facility] | [address] | [place] [address] | | | PATHOLOGY | [address] [...] | + + + + + | [facility] | [address] | [place] [address] | | | PATHOLOGY | [address] [...] | + + + + + | [facility] | [address] | [place] [address] | | | PATHOLOGY | [address] [...] | + + + + + | [facility] | [address] | [place] [address] | | | PATHOLOGY | [address] [...] | + + + + + | [facility] | [address] | [place] [address] | | | PATHOLOGY | [address] | | | + + + + + documented in this encounter Visit Diagnoses Not on filedocumented in this encounter"
--- OUTSIDE RECORDS SUMMARY | ~2020-03-14 | XMS | Clinical Summary ---
Demographics + + + | Address | [address] | | | [place] [address] | + + + | Home Phone | | + + + | Preferred Language | Unknown | + + + | Marital Status | | + + + | Gnosticism Affiliation | Unknown | + + + | Race | Unknown | + + + | Ethnic Group | Unknown | + + + Author + + + | Author | [facility] | | | and [place] | + + + | Organization | [facility] | | | and [place] [...] Team Providers + +------+ + | Care Director Retirement Name | Role | Phone | + [...]
[~2020-03-14 14:31] MED LIST changes: +BUPROPION XL150 MG PO; +DEXTROAMPHETAMI15 MG PO; +DICLOFENAC SODI75 MG PO; +FLUOXETINE HCL40 MG PO; +FUROSEMIDE20 MG PO; +LORAZEPAM1 MG PO; +NORCO 10-325 T1 EACH PO; +PROMETHAZINE HC25 M1 PO; +SIMVASTATIN10 MG PO; +SPIRONOLACTONE50 MG PO; +TRAMADOL HCL50 MG PO; +VENTOLIN HFA18 GM INH
--- OUTSIDE RECORDS SUMMARY | 2020-03-14 14:34 | XMS ---
PreManage Notification: SHALOM GERMAN Security Principal Trainer Events No recent Security Events currently on file CRITERIA MET - [facility] - [facility] - 2 Visits in 30 Days CARE PROVIDERS Ava Palacios Nurse Practitioner: Family Hayley BIOMEDICAL INSTRUMENT TECHNICIAN PHONE: [phone] Bharat has no Care Guidelines for this patient. Rashad. VISIT COUNT (12 MO.) [address] TOTAL 4 NOTE: Visits indicate total known visits. ED/UCC VISIT TRACKING (12 MO.) 03/14/2020 14:32 [facility] TYPE: Emergency COMPLAINT: - HEADACHE 02/16/2020 15:19 [facility] TYPE: Emergency COMPLAINT: - POSSIBLE HEAT STROKE 12/07/2019 23:31 [facility] [place] TYPE: Emergency DIAGNOSES: - Generalized abdominal pain - Post Surgery Pain 09/28/2019 22:28 [facility] [place] TYPE: Emergency COMPLAINT: - WALKING BACKWORDS,TWISTED LEFT LEG,WORKERS COMP DIAGNOSES: - Pain in left knee - Exposure to other specified factors, initial encounter - Sprain of unspecified site of left knee, initial encounter INPATIENT VISIT TRACKING (12 MO.) 02/16/2020 21:24 [facility] [place] TYPE: Medical Surgical COMPLAINT: - PANCREATITIS DIAGNOSES: - Bariatric surgery status - Other intermediate school teacher (current) drug therapy - Obesity, unspecified - Hypokalemia - Essential (primary) hypertension - terminal press operator (current) use of opiate analgesic - Pure hypercholesterolemia, unspecified - Bariatric surgery status - Contact with and (suspected) exposure to other viral communic - MCC (current) use of opiate analgesic - Anxiety disorder, unspecified - Major depressive disorder, single episode, unspecified - terminal press operator (current) use of non-steroidal anti-inflammatories - Biliary acute pancreatitis without necrosis or infection - Anxiety disorder, unspecified - Pure hypercholesterolemia, unspecified - Cholesterolosis of gallbladder - Essential (primary) hypertension - Major depressive disorder, single episode, unspecified - Contact with and (suspected) exposure to other viral communic - Obesity, unspecified - Body mass index (BMI) 33.0-33.9, adult - Hypokalemia - Polycystic ovarian syndrome - Polycystic ovarian syndrome - Cholesterolosis of gallbladder - Other assisted (current) drug therapy - terminal press operator (current) use of non-steroidal anti-inflammatories [email or web address]
[2020-03-14] MEDS ORDERED: CYCLOBENZAPRINE10 MG PO (18:12)
[2020-03-14] MEDS ORDERED: NORCO 7.5-3251 EACH PO (18:12)
== END 2020-03-14 18:52 | disposition home or self-care (01) ==
LOC: ED 14:31
DX: R51 Headache (principal); F43.9 Reaction to severe stress, unspecified; I10 Essential (primary) hypertension; Z79.899 Other long term (current) drug therapy
CPT/HCPCS: 70450; 80053; 85025; 96361; 96374; 96375; 96376; 99284-25; J1170; J1885; J2550; J7030